=== PATIENT | female | born 1980 | race Caucasian/White ===

== ENCOUNTER 2016-04-24 11:39 | Inpatient (IN) | payer OTHER ==
[~2016-04-24] VITALS: Ht 167.6 cm; Wt 75.8 kg
[2016-04-24 12:57] LABS: BASO % 0 % (0-3); EOS % 0 % (0-3); HEMATOCRIT 43.3 % (36.0-47.0); HEMOGLOBIN 14.9 g/dL (12.0-15.5); LYMPH # 1.4 x10^3/uL (1.0-4.8); LYMPH % 9 % (24-48); MEAN CORPUSCULAR HEMOGLOBIN 31 pg (25-35); MEAN CORPUSCULAR HGB CONC 34 g/dL (31-37); MEAN CORPUSCULAR VOLUME 92 fL (79-100); MONO % 4 % (0-9); NEUT % 86 % (31-73); PLATELET COUNT 295 x10^3/uL (140-400); RED BLOOD COUNT 4.74 x10^6/uL (3.50-5.40); RED CELL DISTRIBUTION WIDTH 12.9 % (11.5-14.5); WHITE BLOOD COUNT 14.6 x10^3/uL (4.0-11.0)
[2016-04-24 13:05] LABS: NEG OBC UR NEG; POS OBC UR POS
[2016-04-24 13:06] LABS: BILIRUBIN,URINE NEGATIVE (NEG); GLUCOSE,URINE NEGATIVE (NEG); NITRITE,URINE NEGATIVE (NEG); PH,URINE 6.5; PROTEIN,URINE NEGATIVE (NEG-TRACE); UROBILINOGEN,URINE 0.2 mg/dL (0.2 mg/dL)
[2016-04-24 13:07] LABS: CALCIUM 9.5 mg/dL (8.5-10.1); CREATININE 0.8 mg/dL (0.6-1.0); GFR 81.6; POTASSIUM 4.1 mmol/L (3.5-5.1)
[2016-04-24 13:12] LABS: DIRECT BILIRUBIN 0.1 mg/dL (0.0-0.2); TOTAL BILIRUBIN 0.5 mg/dL (0.2-1.0); TOTAL PROTEIN 7.5 g/dL (6.4-8.2)
[2016-04-24 13:22] LABS: BACTERIA,URINE MANY /HPF (0-FEW); RBC,URINE 0 /HPF (0-2)
--- NOTE | 2016-04-24 13:47 | RAD ---
Indication: Right upper quadrant pain and epigastric pain. The liver demonstrates increased echogenicity consistent with fatty infiltration. No discrete mass is detected. Gallbladder is without stones or sludge. No wall thickening or pericholecystic fluid is identified. The pancreas was poorly visualized. The right kidney is unremarkable. Aorta and IVC are poorly visualized. There is no ascites. Impression: 1. Fatty infiltration of the liver. 2. No evidence of cholelithiasis or acute cholecystitis.
[2016-04-24] MEDS ORDERED: [UNRECOGNIZED DRUG - OTHER] (14:03)
[2016-04-24] MEDS ORDERED: KETOROLAC TROMETHAMINE 30 MG/ML SYRINGE. IV ONE (14:15)
[2016-04-24] MEDS ORDERED: FAMOTIDINE 20 MG/2 ML VIAL IVP ONE (14:15)
[2016-04-24] MEDS ORDERED: ONDANSETRON PF 4 MG/2 ML VIAL. IV ONE (14:15)
[2016-04-24 14:19] LABS: PLT ESTIMATE ADEQUATE (ADEQUATE)
--- NOTE | 2016-04-24 14:42 | PHYS DOC ---
Past Medical History Past Medical History: GERD Past Surgical History: Tonsillectomy, Other Additional Past Surgical Histo: Bilat.ear,"part" of tonsils Alcohol Use: Occasionally Drug Use: None Adult General Chief Complaint Chief Complaint: ABDOMINAL PAIN HPI HPI Patient is a 35 year old female who presents with 1 week of epigastric abdominal pain that is constant and has slightly worse component after eating. She has intermittent nausea that is not always related to eating. She has intermittent nonbloody nonbilious emesis. She denies fever or chills, dysuria, hematuria, back pain, diarrhea, constipation. She has taken tums without relief of her symptoms. She was seen at an outside ED yesterday and had labs and ultrasound of RUQ and told to take narcotic pain meds until she can get a HIDA scan. She saw her primary care doctor today in follow up and was referred here for continued severe symptoms of po intolerance and pain. Review of Systems Review of Systems Constitutional: Denies fever or chills [] Eyes: Denies change in visual acuity, redness, or eye pain [] HENT: Denies nasal congestion or sore throat [] Respiratory: Denies cough or shortness of breath [] Cardiovascular: No additional information not addressed in HPI [] GI: Denies vomiting, bloody stools or diarrhea [] : Denies dysuria or hematuria [] Musculoskeletal: Denies back pain or joint pain [] Integument: Denies rash or skin lesions [] Neurologic: Denies headache, focal weakness or sensory changes [] Endocrine: Denies polyuria or polydipsia [] Current Medications Current Medications Allergies Allergies Allergies Coded Allergies Type Severity Reaction Last Updated Verified Penicillins Allergy Unknown Hives 04/24/16 Yes acetaminophen Allergy Unknown Hives 04/24/16 Yes hydrocodone Allergy Unknown Hives 04/24/16 Yes vancomycin Allergy Unknown "Artem Syndrome." 04/24/16 Yes hydromorphone Adverse Reaction Unknown Whole body shaking-"Said it was an adverse reaction." 04/24/16 Yes Physical Exam Physical Exam Constitutional: Well developed, well nourished, no acute distress, non-toxic appearance. [] HENT: Normocephalic, atraumatic, bilateral external ears normal, oropharynx moist, nose normal. [] Eyes: PERRLA, EOMI. [] Neck: Normal range of motion, supple. [] Cardiovascular:Heart rate regular rhythm [] Lungs & Thorax: Bilateral breath sounds clear to auscultation [] Abdomen: Bowel sounds normal, soft, moderated epigastric and RUQ tenderness, no guarding or rebound. [] Skin: Warm, dry, no erythema, no rash. [] Back: No tenderness, no CVA tenderness. [] Extremities: No tenderness, ROM intact, no edema. [] Neurologic: Alert and oriented X 3, normal motor function, normal sensory function, no focal deficits noted. [] Psychologic: Affect normal, judgement normal, mood normal. [] Current Patient Data Vital Signs Vital Signs Date Time Temp Pulse Resp B/P Pulse Ox O2 Delivery O2 Flow Rate FiO2 04/24/16 12:20 98.6 84 20 118/77 98 Room Air 98.6 Lab Values Laboratory Tests Test 04/24/16 12:18 04/24/16 12:25 Urine Collection Type Unknown Urine Color Yellow Urine Clarity Clear Urine pH 6.5 Urine Specific [place] 1.010 Urine Protein Negativemg/dL (NEG-TRACE) Urine Glucose (UA) Negativemg/dL (NEG) Urine Ketones (Stick) Negativemg/dL (NEG) Urine Blood Negative (NEG) Urine Nitrite Negative (NEG) Urine Bilirubin Negative (NEG) Urine Urobilinogen Dipstick 0.2mg/dL (0.2 mg/dL) Urine Leukocyte Esterase Trace (NEG) Urine RBC 0/HPF (0-2) Urine WBC 5-10/HPF (0-4) Urine Bacteria Many/HPF (0-FEW) Urine Test Negative (NEG) White Blood Count 14.6x10^3/uL (4.0-11.0) H Red Blood Count 4.74x10^6/uL (3.50-5.40) Hemoglobin 14.9g/dL (12.0-15.5) Hematocrit 43.3% (36.0-47.0) Mean Corpuscular Volume 92fL (79-100) Mean Corpuscular Hemoglobin 31pg (25-35) Mean Corpuscular Hemoglobin Concent 34g/dL (31-37) Red Cell Distribution Width 12.9% (11.5-14.5) Platelet Count 295x10^3/uL (140-400) Neutrophils (%) (Auto) 86% (31-73) H Lymphocytes (%) (Auto) 9% (24-48) L Monocytes (%) (Auto) 4% (0-9) Eosinophils (%) (Auto) 0% (0-3) Basophils (%) (Auto) 0% (0-3) Neutrophils # (Auto) 12.6x10^3uL (1.8-7.7) H Lymphocytes # (Auto) 1.4x10^3/uL (1.0-4.8) Monocytes # (Auto) 0.6x10^3/uL (0.0-1.1) Eosinophils # (Auto) 0.0x10^3/uL (0.0-0.7) Basophils # (Auto) 0.0x10^3/uL (0.0-0.2) Segmented Neutrophils % 80% (35-66) H Band Neutrophils % 4% (0-9) Lymphocytes % 10% (24-48) L Monocytes % 6% (0-10) Platelet Estimate Adequate (ADEQUATE) Sodium Level 143mmol/L (136-145) Potassium Level 4.1mmol/L (3.5-5.1) Chloride Level 106mmol/L (98-107) Carbon Dioxide Level 25mmol/L (21-32) Anion Gap 12 (6-14) Blood Urea Nitrogen 7mg/dL (7-20) Creatinine 0.8mg/dL (0.6-1.0) Estimated GFR (Cockcroft-Gault) 81.6 Glucose Level 110mg/dL (70-99) H Calcium Level 9.5mg/dL (8.5-10.1) Total Bilirubin 0.5mg/dL (0.2-1.0) Direct Bilirubin 0.1mg/dL (0.0-0.2) Aspartate Amino Transferase (AST) 15U/L (15-37) Alanine Aminotransferase (ALT) 20U/L (14-59) Alkaline Phosphatase 47U/L (46-116) Total Protein 7.5g/dL (6.4-8.2) Albumin 4.0g/dL (3.4-5.0) Lipase 79U/L (73-393) Laboratory Tests 04/24/16 12:25 Laboratory Tests 04/24/16 12:25 Radiology/Procedures Radiology/Procedures Ultrasound right upper quadrant Impression: 1. Fatty infiltration of the liver. 2. No evidence of cholelithiasis or acute cholecystitis. DICTATED and SIGNED BY: MAGGIE RAY MD DATE: 04/24/16 5419 Course & Med Decision Making Course & Med Decision Making Pertinent Labs and Imaging studies reviewed. (See chart for details) Workup is unremarkable, but she still has severe abdominal pain and her abdominal exam has not improved. Have strong suspicion for acid disease over biliary disease. Will admit for GI consultation and further workup of abdominal pain and symptom control. Have purposely avoided narcotic pain medications as a HIDA scan may be indicated. She agrees with the current management. Discussed case with Dr. Dodd, who will admit. GI consultation placed. Dragon Disclaimer Dragon Disclaimer This electronic medical record was generated, in whole or in part, using a voice recognition dictation system. Departure Departure Impression: Primary Impression: Epigastric abdominal pain Additional Impression: Nausea and vomiting Disposition: ADMITTED INPATIENT Condition: STABLE Referrals: UNKNOWN PCP NAME (PCP) Problem Qualifiers Additional Impression: Nausea and vomiting Vomiting type: unspecified Vomiting Intractability: intractable Qualified Code: R11.2 - Nausea with vomiting, unspecified Inocencia CALLE MD Apr 24, 2016 14:42
[2016-04-24] MEDS ORDERED: ONDANSETRON PF 4 MG/2 ML VIAL. IV PRN ×2 (14:45→18:45)
[2016-04-24] MEDS: PANTOPRAZOLE IV PUSH 40 MG VIAL. IVP SCH ×2 (15:25→23:00)
[2016-04-24] MEDS: IV NORMAL SALINE 1000ML BAG 1,000 ML IV SCH ×3 (15:25→23:00)
--- NOTE | 2016-04-24 15:27 | PDOC1 ---
History and Physical Current Problem List Problem List Problems Medical Problems: (1) Epigastric abdominal pain Status: Acute (2) Nausea and vomiting Status: Acute Current Medications Current Medications Current Medications Medications (Trade) Dose Ordered Sig/[facility] Start Time Stop Time Status Last Admin Dose Admin Famotidine (Pepcid) 20 mg 1X ONCE 04/24/16 14:15 04/24/16 14:16 DC 04/24/16 14:14 20 MG Ketorolac Tromethamine (Toradol) 15 mg 1X ONCE 04/24/16 14:15 04/24/16 14:16 DC 04/24/16 14:12 15 MG Ondansetron HCl (Zofran) 4 mg 1X ONCE 04/24/16 14:15 04/24/16 14:16 DC 04/24/16 14:09 4 MG Ondansetron HCl 4 mg 4 mg PRN Q8HRS PRN 04/24/16 14:45 04/25/16 14:44 Pantoprazole Sodium (Protonix Vial) 40 mg BID 04/24/16 15:00 04/24/16 15:25 40 MG Sodium Chloride (Iv Sodium Chloride 0.9% 1000ml Bag) 1,000 ml @ 125 mls/hr Q8H 04/24/16 15:00 04/25/16 14:59 04/24/16 15:25 125 MLS/HR Allergies Allergies Allergies Coded Allergies Type Severity Reaction Last Updated Verified Penicillins Allergy Unknown Hives 04/24/16 Yes acetaminophen Allergy Unknown Hives 04/24/16 Yes hydrocodone Allergy Unknown Hives 04/24/16 Yes vancomycin Allergy Unknown "Artem Syndrome." 04/24/16 Yes hydromorphone Adverse Reaction Unknown Whole body shaking-"Said it was an adverse reaction." 04/24/16 Yes ROS Review of System CONSTITUTIONAL: No fever or chills EYES: No recent changes SKIN: No rash or itching CARDIOVASCULAR: No chest pain, syncope, palpitations, or edema RESPIRATORY: No SOB or cough GASTROINTESTINAL: nausea, vomiting or abdominal pain NEUROLOGICAL: No headaches or weakness ENDOCRINE: No cold or heat intolerance GENITOURINARY: No urgency or frequency of urination MUSCULOSKELETAL: No back pain or joint pain LYMPHATICS: No enlarged lymph nodes PSYCHIATRIC: No anxiety or depression Physical Exam Physical Exam GEN.: No apparent distress. Alert and oriented. HEENT: Head is normocephalic, atraumatic NECK: Supple. no jvd LUNGS: Clear to auscultation. normal airflow HEART: RRR, S1, S2 present. Peripheral pulses intact ABDOMEN: Soft, nontender. Positive bowel sounds. EXTREMITIES: Without any cyanosis. NEUROLOGIC: Normal speech, normal tone PSYCHIATRIC: Normal affect, normal mood. SKIN: No ulcerations Vitals Vitals Vital Signs Date Time Temp Pulse Resp B/P Pulse Ox O2 Delivery O2 Flow Rate FiO2 04/24/16 12:20 98.6 84 20 118/77 98 Room Air 98.6 Labs Labs Laboratory Tests Test 04/24/16 12:18 04/24/16 12:25 Urine Collection Type Unknown Urine Color Yellow Urine Clarity Clear Urine pH 6.5 Urine Specific [place] 1.010 Urine Protein Negativemg/dL (NEG-TRACE) Urine Glucose (UA) Negativemg/dL (NEG) Urine Ketones (Stick) Negativemg/dL (NEG) Urine Blood Negative (NEG) Urine Nitrite Negative (NEG) Urine Bilirubin Negative (NEG) Urine Urobilinogen Dipstick 0.2mg/dL (0.2 mg/dL) Urine Leukocyte Esterase Trace (NEG) Urine RBC 0/HPF (0-2) Urine WBC 5-10/HPF (0-4) Urine Bacteria Many/HPF (0-FEW) Urine Test Negative (NEG) White Blood Count 14.6x10^3/uL (4.0-11.0) Red Blood Count 4.74x10^6/uL (3.50-5.40) Hemoglobin 14.9g/dL (12.0-15.5) Hematocrit 43.3% (36.0-47.0) Mean Corpuscular Volume 92fL (79-100) Mean Corpuscular Hemoglobin 31pg (25-35) Mean Corpuscular Hemoglobin Concent 34g/dL (31-37) Red Cell Distribution Width 12.9% (11.5-14.5) Platelet Count 295x10^3/uL (140-400) Neutrophils (%) (Auto) 86% (31-73) Lymphocytes (%) (Auto) 9% (24-48) Monocytes (%) (Auto) 4% (0-9) Eosinophils (%) (Auto) 0% (0-3) Basophils (%) (Auto) 0% (0-3) Neutrophils # (Auto) 12.6x10^3uL (1.8-7.7) Lymphocytes # (Auto) 1.4x10^3/uL (1.0-4.8) Monocytes # (Auto) 0.6x10^3/uL (0.0-1.1) Eosinophils # (Auto) 0.0x10^3/uL (0.0-0.7) Basophils # (Auto) 0.0x10^3/uL (0.0-0.2) Segmented Neutrophils % 80% (35-66) Band Neutrophils % 4% (0-9) Lymphocytes % 10% (24-48) Monocytes % 6% (0-10) Platelet Estimate Adequate (ADEQUATE) Sodium Level 143mmol/L (136-145) Potassium Level 4.1mmol/L (3.5-5.1) Chloride Level 106mmol/L (98-107) Carbon Dioxide Level 25mmol/L (21-32) Anion Gap 12 (6-14) Blood Urea Nitrogen 7mg/dL (7-20) Creatinine 0.8mg/dL (0.6-1.0) Estimated GFR (Cockcroft-Gault) 81.6 Glucose Level 110mg/dL (70-99) Calcium Level 9.5mg/dL (8.5-10.1) Total Bilirubin 0.5mg/dL (0.2-1.0) Direct Bilirubin 0.1mg/dL (0.0-0.2) Aspartate Amino Transf (AST/SGOT) 15U/L (15-37) Alanine Aminotransferase (ALT/SGPT) 20U/L (14-59) Alkaline Phosphatase 47U/L (46-116) Total Protein 7.5g/dL (6.4-8.2) Albumin 4.0g/dL (3.4-5.0) Lipase 79U/L (73-393) Laboratory Tests Test 04/24/16 12:18 04/24/16 12:25 Urine Collection Type Unknown Urine Color Yellow Urine Clarity Clear Urine pH 6.5 Urine Specific [place] 1.010 Urine Protein Negativemg/dL (NEG-TRACE) Urine Glucose (UA) Negativemg/dL (NEG) Urine Ketones (Stick) Negativemg/dL (NEG) Urine Blood Negative (NEG) Urine Nitrite Negative (NEG) Urine Bilirubin Negative (NEG) Urine Urobilinogen Dipstick 0.2mg/dL (0.2 mg/dL) Urine Leukocyte Esterase Trace (NEG) Urine RBC 0/HPF (0-2) Urine WBC 5-10/HPF (0-4) Urine Bacteria Many/HPF (0-FEW) Urine Test Negative (NEG) White Blood Count 14.6x10^3/uL (4.0-11.0) Red Blood Count 4.74x10^6/uL (3.50-5.40) Hemoglobin 14.9g/dL (12.0-15.5) Hematocrit 43.3% (36.0-47.0) Mean Corpuscular Volume 92fL (79-100) Mean Corpuscular Hemoglobin 31pg (25-35) Mean Corpuscular Hemoglobin Concent 34g/dL (31-37) Red Cell Distribution Width 12.9% (11.5-14.5) Platelet Count 295x10^3/uL (140-400) Neutrophils (%) (Auto) 86% (31-73) Lymphocytes (%) (Auto) 9% (24-48) Monocytes (%) (Auto) 4% (0-9) Eosinophils (%) (Auto) 0% (0-3) Basophils (%) (Auto) 0% (0-3) Neutrophils # (Auto) 12.6x10^3uL (1.8-7.7) Lymphocytes # (Auto) 1.4x10^3/uL (1.0-4.8) Monocytes # (Auto) 0.6x10^3/uL (0.0-1.1) Eosinophils # (Auto) 0.0x10^3/uL (0.0-0.7) Basophils # (Auto) 0.0x10^3/uL (0.0-0.2) Segmented Neutrophils % 80% (35-66) Band Neutrophils % 4% (0-9) Lymphocytes % 10% (24-48) Monocytes % 6% (0-10) Platelet Estimate Adequate (ADEQUATE) Sodium Level 143mmol/L (136-145) Potassium Level 4.1mmol/L (3.5-5.1) Chloride Level 106mmol/L (98-107) Carbon Dioxide Level 25mmol/L (21-32) Anion Gap 12 (6-14) Blood Urea Nitrogen 7mg/dL (7-20) Creatinine 0.8mg/dL (0.6-1.0) Estimated GFR (Cockcroft-Gault) 81.6 Glucose Level 110mg/dL (70-99) Calcium Level 9.5mg/dL (8.5-10.1) Total Bilirubin 0.5mg/dL (0.2-1.0) Direct Bilirubin 0.1mg/dL (0.0-0.2) Aspartate Amino Transf (AST/SGOT) 15U/L (15-37) Alanine Aminotransferase (ALT/SGPT) 20U/L (14-59) Alkaline Phosphatase 47U/L (46-116) Total Protein 7.5g/dL (6.4-8.2) Albumin 4.0g/dL (3.4-5.0) Lipase 79U/L (73-393) VTE Prophylaxis Ordered VTE Prophylaxis Devices: Yes VTE Pharmacological Prophylaxi: Yes XAVI SOLORIO MD Apr 24, 2016 15:27
--- NOTE | 2016-04-24 15:29 | ACF ---
Admission Forms Criteria ABDOMINAL PAIN Clinical Indications for Admission to Inpatient Care (Place 'X' for any and all applicable criteria): Admission is indicated for ANY ONE of the following(1)(2)(3)(4)(5): [X]I. Inpatient admission required rather than observation care (Also use Abdominal Pain: Observation Care, as appropriate) because of ANY ONE of the following: [X]a) Severe pain requiring acute inpatient management [ ]b) Identification of etiology/finding that requires inpatient care (eg, aortic dissection, free air) [ ]c) Absent bowel sounds with complete ileus(6) [ ]d) Suspected toxic megacolon [ ]e) Severe electrolyte abnormalities requiring inpatient care [ ]f) High fever or infection requiring inpatient admission as indicated by ANY ONE of following(7)(8): [ ] i) Appropriate outpatient or observational care antimicrobial treatment unavailable, not effective, or not feasible [ ] ii) Documented bacteremia [ ] iii) Temperature > 104.9 degrees F (oral) [ ] iv) T >103.1 F (oral) or < 96.8 F(rectal) that does not respond to all emergency treatment measures [ ]g) Signs of intestinal obstruction [B] [ ]h) Hemodynamic instability [ ]i) IV fluid to replace significant ongoing losses (greater than 3 L/m2 per day) (12)(13) [ ]j) Percutaneous or open drainage (eg, abscess, biliary tract ) procedures [ ]k) Parenteral nutrition regimen that must be implemented on inpatient basis [ ]l) Other condition,treatment or monitoring requiring inpatient admission. [ ]II. Peritoneal signs present [ ]III. Surgery needed that cannot be performed on an ambulatory basis. [ ]IV. Evaluation requires patient to not eat or drink for extended period ( eg, more than 24 hours). [ ]V. Contraindications and/or Inappropriate clinical situations for Observational Care in patients with abdominal pain, when ANY ONE of the following is required: [ ]a) Thorough evaluation is required to prevent catastrophic events due to delays in diagnosing (e.g.Mesenteric ischemia) 1,3 [ ]b) Patient with severe pathology or with chronic symptoms unlikely to improve in the ED stay (3) [ ]. General contraindications and/or Inappropriate clinical situations for Observational Care in patients with abdominal pain, when ANY ONE of the following is required: [ ]a) Prediction of prolongation of LOS based on ANY ONE of the following may be considered as a contraindication for observational care 2, 3, 4, 5, 6, 7, 8, 9, 10, 11 [ ]i) Age > 65 yrs. [ ]ii) Patient arriving by ambulance [ ]iii) Patient with high acuity [ ]iv) Patient requiring vital sign monitoring [ ]v) Patient on IV medication [ ]b) Systolic blood pressures 180mmHg 3,12 [ ]c) Patient with altered mental status including delirium and other alteration of consciousness, (3) [ ]d) Patient whose discharge disposition will be to a retirement home or rehabilitation home should not be managed in Emergency Department Observation Unit. CMS rule requires 3 days hospital stay before such placement.3,13 [ ]e) Patient with failure to thrive due to broad array of etiologies 3,16,17 [ ]f) Inability to ambulate 3,14 Extended stay beyond goal length of stay may be needed for(2)(3): [ ]a) Persistent abdominal pain with suspected intra-abdominal process [ ]b) Diagnosed condition requiring continued stay (e.g., pancreatitis, complicated diverticulitis) [ ]c) Surgery (e.g., colectomy) The original [email or web address] content created by [employer] has been revised. The portions of the content which have been revised are identified through the use of italic text or in bold, and [facility] has neither reviewed nor approved the modified material.All other unmodified content is copyright [employer]. Please see references footnoted in the original [email or web address] edition 2016 Admission Criteria Met?: Yes VITO LI Apr 24, 2016 15:29
--- NOTE | 2016-04-24 15:47 | PDOC2 ---
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 She has had epigastric pain w/ radiation to BUQ (mostly right it seem) and right shoulder blade x 1 week. She denies precipitating events. Pain is constant but is worse after eating; she has avoided eating as a result. It has been associated w/ nausea; she hasn't allowed herself to vomit. She tried Tums, Prilosec (for a few days), ibuprofen (once), and massaging right shoulder w/o pain relief. She saw her PCP and was sent to [facility] where she reports an abdominal ultrasound was normal, she was given a prescription for antibiotics for a UTI, and discharged w/ recommendation to have a HIDA scan as an outpatient. Pain and nausea were much worse today, so she saw her PCP again today who advised she be seen at this facility. Pain can be 10/10 at it's worst but is currently about 4/10 after Toradol. Labs unrevealing except for WBC 14.6. RUQ US showed fatty liver but was otherwise unrevealing. HIDA has been ordered. She denies h/o reflux/heartburn/dyspepsia, dysphagia, weight loss, bloating, diarrhea, constipation, hematochezia, and melena. No previous EGD or colonoscopy. Recent travel to [place]; only drank bottled water and ate cooked foods. PMH: PMH: ear surgeries, tonsillectomy FH: Family History: No pertinent hx (denies GI cancers) Social History: Smoke: No ALCOHOL: social Drugs: None ROS: GEN: Denies fevers, chills, sweats HEENT: Denies blurred vision, sore throat CV: Denies chest pain RESP: Denies shortness of air, cough GI: Per HPI : Denies hematuria, dysuria ENDO: Denies weight changes NEURO: Denies confusion, dizziness MSK: Denies weakness, joint pain/swelling SKIN: Denies jaundice, pruritus VItals: Vitals: Vital Signs Date Time Temp Pulse Resp B/P Pulse Ox O2 Delivery O2 Flow Rate FiO2 04/24/16 12:20 98.6 84 20 118/77 98 Room Air 98.6 Labs: Labs: Laboratory Tests Test 04/24/16 12:18 1/24/17 12:25 Urine Collection Type Unknown Urine Color Yellow Urine Clarity Clear Urine pH 6.5 Urine Specific [place] 1.010 Urine Protein Negativemg/dL (NEG-TRACE) Urine Glucose (UA) Negativemg/dL (NEG) Urine Ketones (Stick) Negativemg/dL (NEG) Urine Blood Negative (NEG) Urine Nitrite Negative (NEG) Urine Bilirubin Negative (NEG) Urine Urobilinogen Dipstick 0.2mg/dL (0.2 mg/dL) Urine Leukocyte Esterase Trace (NEG) Urine RBC 0/HPF (0-2) Urine WBC 5-10/HPF (0-4) Urine Bacteria Many/HPF (0-FEW) Urine Test Negative (NEG) White Blood Count 14.6x10^3/uL (4.0-11.0) Red Blood Count 4.74x10^6/uL (3.50-5.40) Hemoglobin 14.9g/dL (12.0-15.5) Hematocrit 43.3% (36.0-47.0) Mean Corpuscular Volume 92fL (79-100) Mean Corpuscular Hemoglobin 31pg (25-35) Mean Corpuscular Hemoglobin Concent 34g/dL (31-37) Red Cell Distribution Width 12.9% (11.5-14.5) Platelet Count 295x10^3/uL (140-400) Neutrophils (%) (Auto) 86% (31-73) Lymphocytes (%) (Auto) 9% (24-48) Monocytes (%) (Auto) 4% (0-9) Eosinophils (%) (Auto) 0% (0-3) Basophils (%) (Auto) 0% (0-3) Neutrophils # (Auto) 12.6x10^3uL (1.8-7.7) Lymphocytes # (Auto) 1.4x10^3/uL (1.0-4.8) Monocytes # (Auto) 0.6x10^3/uL (0.0-1.1) Eosinophils # (Auto) 0.0x10^3/uL (0.0-0.7) Basophils # (Auto) 0.0x10^3/uL (0.0-0.2) Segmented Neutrophils % 80% (35-66) Band Neutrophils % 4% (0-9) Lymphocytes % 10% (24-48) Monocytes % 6% (0-10) Platelet Estimate Adequate (ADEQUATE) Sodium Level 143mmol/L (136-145) Potassium Level 4.1mmol/L (3.5-5.1) Chloride Level 106mmol/L (98-107) Carbon Dioxide Level 25mmol/L (21-32) Anion Gap 12 (6-14) Blood Urea Nitrogen 7mg/dL (7-20) Creatinine 0.8mg/dL (0.6-1.0) Estimated GFR (Cockcroft-Gault) 81.6 Glucose Level 110mg/dL (70-99) Calcium Level 9.5mg/dL (8.5-10.1) Total Bilirubin 0.5mg/dL (0.2-1.0) Direct Bilirubin 0.1mg/dL (0.0-0.2) Aspartate Amino Transf (AST/SGOT) 15U/L (15-37) Alanine Aminotransferase (ALT/SGPT) 20U/L (14-59) Alkaline Phosphatase 47U/L (46-116) Total Protein 7.5g/dL (6.4-8.2) Albumin 4.0g/dL (3.4-5.0) Lipase 79U/L (73-393) Allergies: Coded Allergies: Penicillins (Verified Allergy, Unknown, Hives, 04/24/16) acetaminophen (Verified Allergy, Unknown, Hives, 04/24/16) hydrocodone (Verified Allergy, Unknown, Hives, 04/24/16) vancomycin (Verified Allergy, Unknown, "Artem Syndrome." , 04/24/16) hydromorphone (Verified Adverse Reaction, Unknown, Whole body shaking- "Said it was an adverse reaction." , 04/24/16) Medications: Current Medications Medications (Trade) Dose Ordered Sig/Fernando Route PRN Reason Start Time Stop Time Status Last Admin Dose Admin Ondansetron HCl (Zofran) 4 mg 1X ONCE IV 04/24/16 14:15 04/24/16 14:16 DC 04/24/16 14:09 Famotidine (Pepcid) 20 mg 1X ONCE IVP 04/24/16 14:15 04/24/16 14:16 DC 04/24/16 14:14 Ketorolac Tromethamine 15 mg 15 mg 1X ONCE IV 04/24/16 14:15 04/24/16 14:16 DC 04/24/16 14:12 Sodium Chloride (Iv Sodium Chloride 0.9% 1000ml Bag) 1,000 ml @ 125 mls/hr Q8H IV 04/24/16 15:00 04/25/16 14:59 04/24/16 15:25 Pantoprazole Sodium (Protonix Vial) 40 mg BID IVP 04/24/16 15:00 04/24/16 23:59 04/24/16 15:25 Imaging: Imaging: RUQ US 04/24/16 Impression: 1. Fatty infiltration of the liver. 2. No evidence of cholelithiasis or acute cholecystitis. PE: GEN: NAD HEENT: Atraumatic, PERRL LUNGS: CTAB anteriorly HEART: RRR ABD: NABS, S/ND, epigastric tenderness - less so in RUQ, some under left ribs EXTREMITY: No edema SKIN: No rashes, no jaundice NEURO/PSYCH: A & O 3 OTHER: present A/P: A/P: Upper abdominal pain w/ nausea -onset 1 week ago w/o precipitating events -constant but worse post-prandially -abd US and labs unrevealing -- Await HIDA. If unrevealing, consider EGD. Agree w/ PPI. KALINA KENNY Apr 24, 2016 15:47
[2016-04-24 16:53] VITALS: BP 118/76
[2016-04-24] MEDS: PROCHLORPERAZINE 10 MG/2 ML VIAL. IV PRN (18:43)
[2016-04-24] MEDS: FENTANYL PF 100 MCG/2 ML VIAL. IV PRN (18:43)
[2016-04-24] MEDS ORDERED: hydrALAZINE 20 MG/ML VIAL. IVP PRN (18:45)
[2016-04-24] MEDS ORDERED: ALBUTEROL SULFATE 2.5 MG/3 ML NEBU. NEB PRN (18:45)
[2016-04-24 19:00] VITALS: BP 107/66
[2016-04-24 19:33] VITALS: BP 118/76
--- NOTE | 2016-04-24 19:54 | HP ---
ADMIT DATE: 04/24/2016 CHIEF COMPLAINT: Abdominal pain. HISTORY OF PRESENT ILLNESS: A 35-year-old female patient with no significant prior medical problems, presented to the ER with complaints of epigastric abdominal pain for nearly 1 week. The patient was seen by ER physician at ____ hospital and she had ultrasound of the abdomen, which is negative; however, the patient continued to have abdominal pain. This morning, the patient came to the ER. She describes this pain as epigastric in nature and constant and spasmodic in nature. Denies any radiation; however, she complains of right shoulder pain in the past. She denies any past medical history such as peptic ulcer disease, gastritis, or GERD. PAST MEDICAL HISTORY: No hypertension, no diabetes. SOCIAL HISTORY: No smoking, no alcohol, no drug abuse. FAMILY HISTORY: Denies any cancers. REVIEW OF SYSTEMS, ALLERGIES AND PHYSICAL EXAMINATION: Please see my electronic H and P. LABORATORY DATA: 1. WBC 14.6, MCV is 92, MCHC is 34, neutrophils 86%, bands 4. 2. Chemistry: Sodium is 143, potassium is 4.1, carbon dioxide 25, anion gap is 12, creatinine is 0.8. 3. Urine, specific gravity 1.010, ketones negative, blood negative, nitrites negative, leukocyte esterase is trace. test negative. ASSESSMENT: Acute abdominal pain, possible due to peptic ulcer disease versus gastritis. PLAN: 1. Keep the patient n.p.o. and continue IV hydration at 100 mL per hour and pain control with fentanyl and a HIDA scan has been ordered. Anticipated HIDA scan in a.m. 2. GI has been consulted. We will continue the patient on IV Protonix. 3. For nausea and vomiting, IV Zofran with Compazine. 4. If the patient's symptoms did not improve after HIDA scan, probably she is a candidate for EGD. 5. I will also order an abdominal x-ray to rule out any perforation. XAVI SOLORIO MD DR: ELEAZAR/abram JOB#: [id number] / [id number] MTDD
[2016-04-24] MEDS: ENOXAPARIN 40 MG/0.4 ML DISP.SYRIN. SQ SCH (21:00)
[2016-04-24 23:17] VITALS: BP 118/63
[2016-04-25 03:00] VITALS: BP 99/65
[2016-04-25] MEDS: IV NORMAL SALINE 1000ML BAG 1,000 ML IV SCH ×3 (04:47→21:08)
[2016-04-25 05:38] LABS: BASO % 0 % (0-3); EOS % 0 % (0-3); HEMATOCRIT 35.8 % (36.0-47.0); HEMOGLOBIN 12.3 g/dL (12.0-15.5); LYMPH # 5.3 x10^3/uL (1.0-4.8); LYMPH % 41 % (24-48); MEAN CORPUSCULAR HEMOGLOBIN 31 pg (25-35); MEAN CORPUSCULAR HGB CONC 34 g/dL (31-37); MEAN CORPUSCULAR VOLUME 90 fL (79-100); MONO % 5 % (0-9); NEUT % 53 % (31-73); PLATELET COUNT 237 x10^3/uL (140-400); RED BLOOD COUNT 3.98 x10^6/uL (3.50-5.40)
[2016-04-25 05:49] LABS: CALCIUM 8.3 mg/dL (8.5-10.1); GFR 63.1; POTASSIUM 3.6 mmol/L (3.5-5.1)
[2016-04-25 07:00] VITALS: BP 132/82
[2016-04-25] MEDS: PANTOPRAZOLE 40 MG TABLET. PO SCH (07:30)
--- NOTE | 2016-04-25 07:31 | RAD ---
Abdomen, 2 views, 04/24/2016: History: Abdominal pain Gas is present in large and small bowel in a nonspecific pattern. No free air seen in the abdomen. There is no evidence of organomegaly. No significant abnormal abdominal calcifications are seen. IMPRESSION: No acute abdominal abnormality is detected.
--- NOTE | 2016-04-25 10:12 | PDOC ---
Subjective: Subjective: Out for HIDA. D/w - has been NPO since admission w/ less pain and nausea. Rated 2/10 this a.m. Was a little worse when she got up and moved around. Objective: Vital Signs: Vital Signs Date Time Temp Pulse Resp B/P Pulse Ox O2 Delivery O2 Flow Rate FiO2 04/25/16 07:00 98.2 73 18 132/82 97 Room Air 98.2 Labs: Laboratory Tests Test 04/24/16 12:18 04/24/16 12:25 04/25/16 05:03 Urine Collection Type Unknown Urine Color Yellow Urine Clarity Clear Urine pH 6.5 Urine Specific [place] 1.010 Urine Protein Negativemg/dL Urine Glucose (UA) Negativemg/dL Urine Ketones (Stick) Negativemg/dL Urine Blood Negative Urine Nitrite Negative Urine Bilirubin Negative Urine Urobilinogen Dipstick 0.2mg/dL Urine Leukocyte Esterase Trace Urine RBC 0/HPF Urine WBC 5-10/HPF Urine Bacteria Many/HPF Urine Test Negative White Blood Count 14.6x10^3/uL 13.0x10^3/uL Red Blood Count 4.74x10^6/uL 3.98x10^6/uL Hemoglobin 14.9g/dL 12.3g/dL Hematocrit 43.3% 35.8% Mean Corpuscular Volume 92fL 90fL Mean Corpuscular Hemoglobin 31pg 31pg Mean Corpuscular Hemoglobin Concent 34g/dL 34g/dL Red Cell Distribution Width 12.9% 13.0% Platelet Count 295x10^3/uL 237x10^3/uL Neutrophils (%) (Auto) 86% 53% Lymphocytes (%) (Auto) 9% 41% Monocytes (%) (Auto) 4% 5% Eosinophils (%) (Auto) 0% 0% Basophils (%) (Auto) 0% 0% Neutrophils # (Auto) 12.6x10^3uL 7.0x10^3uL Lymphocytes # (Auto) 1.4x10^3/uL 5.3x10^3/uL Monocytes # (Auto) 0.6x10^3/uL 0.7x10^3/uL Eosinophils # (Auto) 0.0x10^3/uL 0.0x10^3/uL Basophils # (Auto) 0.0x10^3/uL 0.0x10^3/uL Segmented Neutrophils % 80% Band Neutrophils % 4% Lymphocytes % 10% Monocytes % 6% Platelet Estimate Adequate Sodium Level 143mmol/L 144mmol/L Potassium Level 4.1mmol/L 3.6mmol/L Chloride Level 106mmol/L 110mmol/L Carbon Dioxide Level 25mmol/L 24mmol/L Anion Gap 12 10 Blood Urea Nitrogen 7mg/dL 15mg/dL Creatinine 0.8mg/dL 1.0mg/dL Estimated GFR (Cockcroft-Gault) 81.6 63.1 Glucose Level 110mg/dL 88mg/dL Calcium Level 9.5mg/dL 8.3mg/dL Total Bilirubin 0.5mg/dL Direct Bilirubin 0.1mg/dL Aspartate Amino Transf (AST/SGOT) 15U/L Alanine Aminotransferase (ALT/SGPT) 20U/L Alkaline Phosphatase 47U/L Total Protein 7.5g/dL Albumin 4.0g/dL Lipase 79U/L PE: no exam A/P: Upper abdominal pain w/ nausea - improving -abd US and labs unrevealing -on PPI -- Will follow for HIDA results. KALINA KENNY Apr 25, 2016 10:12
--- NOTE | 2016-04-25 10:23 | PDOC ---
PROGRESS NOTES Chief Complaint Chief Complaint cc: abdominal pain A/P Acute abdominal pain, possible due to peptic ulcer disease versus gastritis. plan HIDA pending PPI NPO IV-NS IV ZOFRAN GI following pain control with IV fentanyl History of Present Illness History of Present Illness pain 09/08, no fever Vitals Vitals Vital Signs Date Time Temp Pulse Resp B/P Pulse Ox O2 Delivery O2 Flow Rate FiO2 04/25/16 07:00 98.2 73 18 132/82 97 Room Air 98.2 Physical Exam General: Alert, Oriented X3 Heart: Regular rate, Normal S1, Normal S2 Lungs: Clear, Wheezing Abdomen: Normal bowel sounds, Soft Labs LABS Laboratory Tests Test 04/24/16 12:18 04/24/16 12:25 04/25/16 05:03 Urine Collection Type Unknown Urine Color Yellow Urine Clarity Clear Urine pH 6.5 Urine Specific [place] 1.010 Urine Protein Negativemg/dL (NEG-TRACE) Urine Glucose (UA) Negativemg/dL (NEG) Urine Ketones (Stick) Negativemg/dL (NEG) Urine Blood Negative (NEG) Urine Nitrite Negative (NEG) Urine Bilirubin Negative (NEG) Urine Urobilinogen Dipstick 0.2mg/dL (0.2 mg/dL) Urine Leukocyte Esterase Trace (NEG) Urine RBC 0/HPF (0-2) Urine WBC 5-10/HPF (0-4) Urine Bacteria Many/HPF (0-FEW) Urine Test Negative (NEG) White Blood Count 14.6x10^3/uL (4.0-11.0) 13.0x10^3/uL (4.0-11.0) Red Blood Count 4.74x10^6/uL (3.50-5.40) 3.98x10^6/uL (3.50-5.40) Hemoglobin 14.9g/dL (12.0-15.5) 12.3g/dL (12.0-15.5) Hematocrit 43.3% (36.0-47.0) 35.8% (36.0-47.0) Mean Corpuscular Volume 92fL (79-100) 90fL (79-100) Mean Corpuscular Hemoglobin 31pg (25-35) 31pg (25-35) Mean Corpuscular Hemoglobin Concent 34g/dL (31-37) 34g/dL (31-37) Red Cell Distribution Width 12.9% (11.5-14.5) 13.0% (11.5-14.5) Platelet Count 295x10^3/uL (140-400) 237x10^3/uL (140-400) Neutrophils (%) (Auto) 86% (31-73) 53% (31-73) Lymphocytes (%) (Auto) 9% (24-48) 41% (24-48) Monocytes (%) (Auto) 4% (0-9) 5% (0-9) Eosinophils (%) (Auto) 0% (0-3) 0% (0-3) Basophils (%) (Auto) 0% (0-3) 0% (0-3) Neutrophils # (Auto) 12.6x10^3uL (1.8-7.7) 7.0x10^3uL (1.8-7.7) Lymphocytes # (Auto) 1.4x10^3/uL (1.0-4.8) 5.3x10^3/uL (1.0-4.8) Monocytes # (Auto) 0.6x10^3/uL (0.0-1.1) 0.7x10^3/uL (0.0-1.1) Eosinophils # (Auto) 0.0x10^3/uL (0.0-0.7) 0.0x10^3/uL (0.0-0.7) Basophils # (Auto) 0.0x10^3/uL (0.0-0.2) 0.0x10^3/uL (0.0-0.2) Segmented Neutrophils % 80% (35-66) Band Neutrophils % 4% (0-9) Lymphocytes % 10% (24-48) Monocytes % 6% (0-10) Platelet Estimate Adequate (ADEQUATE) Sodium Level 143mmol/L (136-145) 144mmol/L (136-145) Potassium Level 4.1mmol/L (3.5-5.1) 3.6mmol/L (3.5-5.1) Chloride Level 106mmol/L (98-107) 110mmol/L (98-107) Carbon Dioxide Level 25mmol/L (21-32) 24mmol/L (21-32) Anion Gap 12 (6-14) 10 (6-14) Blood Urea Nitrogen 7mg/dL (7-20) 15mg/dL (7-20) Creatinine 0.8mg/dL (0.6-1.0) 1.0mg/dL (0.6-1.0) Estimated GFR (Cockcroft-Gault) 81.6 63.1 Glucose Level 110mg/dL (70-99) 88mg/dL (70-99) Calcium Level 9.5mg/dL (8.5-10.1) 8.3mg/dL (8.5-10.1) Total Bilirubin 0.5mg/dL (0.2-1.0) Direct Bilirubin 0.1mg/dL (0.0-0.2) Aspartate Amino Transf (AST/SGOT) 15U/L (15-37) Alanine Aminotransferase (ALT/SGPT) 20U/L (14-59) Alkaline Phosphatase 47U/L (46-116) Total Protein 7.5g/dL (6.4-8.2) Albumin 4.0g/dL (3.4-5.0) Lipase 79U/L (73-393) Assessment and Plan Assessmemt and Plan Problems Medical Problems: (1) Epigastric abdominal pain Status: Acute (2) Nausea and vomiting Status: Acute Problems: Comment Review of Relevant I have reviewed the following items jann (where applicable) has been applied. Labs Laboratory Tests Test 04/24/16 12:18 04/24/16 12:25 04/25/16 05:03 Urine Collection Type Unknown Urine Color Yellow Urine Clarity Clear Urine pH 6.5 Urine Specific [place] 1.010 Urine Protein Negativemg/dL (NEG-TRACE) Urine Glucose (UA) Negativemg/dL (NEG) Urine Ketones (Stick) Negativemg/dL (NEG) Urine Blood Negative (NEG) Urine Nitrite Negative (NEG) Urine Bilirubin Negative (NEG) Urine Urobilinogen Dipstick 0.2mg/dL (0.2 mg/dL) Urine Leukocyte Esterase Trace (NEG) Urine RBC 0/HPF (0-2) Urine WBC 5-10/HPF (0-4) Urine Bacteria Many/HPF (0-FEW) Urine Test Negative (NEG) White Blood Count 14.6x10^3/uL (4.0-11.0) 13.0x10^3/uL (4.0-11.0) Red Blood Count 4.74x10^6/uL (3.50-5.40) 3.98x10^6/uL (3.50-5.40) Hemoglobin 14.9g/dL (12.0-15.5) 12.3g/dL (12.0-15.5) Hematocrit 43.3% (36.0-47.0) 35.8% (36.0-47.0) Mean Corpuscular Volume 92fL (79-100) 90fL (79-100) Mean Corpuscular Hemoglobin 31pg (25-35) 31pg (25-35) Mean Corpuscular Hemoglobin Concent 34g/dL (31-37) 34g/dL (31-37) Red Cell Distribution Width 12.9% (11.5-14.5) 13.0% (11.5-14.5) Platelet Count 295x10^3/uL (140-400) 237x10^3/uL (140-400) Neutrophils (%) (Auto) 86% (31-73) 53% (31-73) Lymphocytes (%) (Auto) 9% (24-48) 41% (24-48) Monocytes (%) (Auto) 4% (0-9) 5% (0-9) Eosinophils (%) (Auto) 0% (0-3) 0% (0-3) Basophils (%) (Auto) 0% (0-3) 0% (0-3) Neutrophils # (Auto) 12.6x10^3uL (1.8-7.7) 7.0x10^3uL (1.8-7.7) Lymphocytes # (Auto) 1.4x10^3/uL (1.0-4.8) 5.3x10^3/uL (1.0-4.8) Monocytes # (Auto) 0.6x10^3/uL (0.0-1.1) 0.7x10^3/uL (0.0-1.1) Eosinophils # (Auto) 0.0x10^3/uL (0.0-0.7) 0.0x10^3/uL (0.0-0.7) Basophils # (Auto) 0.0x10^3/uL (0.0-0.2) 0.0x10^3/uL (0.0-0.2) Segmented Neutrophils % 80% (35-66) Band Neutrophils % 4% (0-9) Lymphocytes % 10% (24-48) Monocytes % 6% (0-10) Platelet Estimate Adequate (ADEQUATE) Sodium Level 143mmol/L (136-145) 144mmol/L (136-145) Potassium Level 4.1mmol/L (3.5-5.1) 3.6mmol/L (3.5-5.1) Chloride Level 106mmol/L (98-107) 110mmol/L (98-107) Carbon Dioxide Level 25mmol/L (21-32) 24mmol/L (21-32) Anion Gap 12 (6-14) 10 (6-14) Blood Urea Nitrogen 7mg/dL (7-20) 15mg/dL (7-20) Creatinine 0.8mg/dL (0.6-1.0) 1.0mg/dL (0.6-1.0) Estimated GFR (Cockcroft-Gault) 81.6 63.1 Glucose Level 110mg/dL (70-99) 88mg/dL (70-99) Calcium Level 9.5mg/dL (8.5-10.1) 8.3mg/dL (8.5-10.1) Total Bilirubin 0.5mg/dL (0.2-1.0) Direct Bilirubin 0.1mg/dL (0.0-0.2) Aspartate Amino Transf (AST/SGOT) 15U/L (15-37) Alanine Aminotransferase (ALT/SGPT) 20U/L (14-59) Alkaline Phosphatase 47U/L (46-116) Total Protein 7.5g/dL (6.4-8.2) Albumin 4.0g/dL (3.4-5.0) Lipase 79U/L (73-393) Laboratory Tests Test 04/24/16 12:18 04/24/16 12:25 04/25/16 05:03 Urine Collection Type Unknown Urine Color Yellow Urine Clarity Clear Urine pH 6.5 Urine Specific [place] 1.010 Urine Protein Negativemg/dL (NEG-TRACE) Urine Glucose (UA) Negativemg/dL (NEG) Urine Ketones (Stick) Negativemg/dL (NEG) Urine Blood Negative (NEG) Urine Nitrite Negative (NEG) Urine Bilirubin Negative (NEG) Urine Urobilinogen Dipstick 0.2mg/dL (0.2 mg/dL) Urine Leukocyte Esterase Trace (NEG) Urine RBC 0/HPF (0-2) Urine WBC 5-10/HPF (0-4) Urine Bacteria Many/HPF (0-FEW) Urine Test Negative (NEG) White Blood Count 14.6x10^3/uL (4.0-11.0) 13.0x10^3/uL (4.0-11.0) Red Blood Count 4.74x10^6/uL (3.50-5.40) 3.98x10^6/uL (3.50-5.40) Hemoglobin 14.9g/dL (12.0-15.5) 12.3g/dL (12.0-15.5) Hematocrit 43.3% (36.0-47.0) 35.8% (36.0-47.0) Mean Corpuscular Volume 92fL (79-100) 90fL (79-100) Mean Corpuscular Hemoglobin 31pg (25-35) 31pg (25-35) Mean Corpuscular Hemoglobin Concent 34g/dL (31-37) 34g/dL (31-37) Red Cell Distribution Width 12.9% (11.5-14.5) 13.0% (11.5-14.5) Platelet Count 295x10^3/uL (140-400) 237x10^3/uL (140-400) Neutrophils (%) (Auto) 86% (31-73) 53% (31-73) Lymphocytes (%) (Auto) 9% (24-48) 41% (24-48) Monocytes (%) (Auto) 4% (0-9) 5% (0-9) Eosinophils (%) (Auto) 0% (0-3) 0% (0-3) Basophils (%) (Auto) 0% (0-3) 0% (0-3) Neutrophils # (Auto) 12.6x10^3uL (1.8-7.7) 7.0x10^3uL (1.8-7.7) Lymphocytes # (Auto) 1.4x10^3/uL (1.0-4.8) 5.3x10^3/uL (1.0-4.8) Monocytes # (Auto) 0.6x10^3/uL (0.0-1.1) 0.7x10^3/uL (0.0-1.1) Eosinophils # (Auto) 0.0x10^3/uL (0.0-0.7) 0.0x10^3/uL (0.0-0.7) Basophils # (Auto) 0.0x10^3/uL (0.0-0.2) 0.0x10^3/uL (0.0-0.2) Segmented Neutrophils % 80% (35-66) Band Neutrophils % 4% (0-9) Lymphocytes % 10% (24-48) Monocytes % 6% (0-10) Platelet Estimate Adequate (ADEQUATE) Sodium Level 143mmol/L (136-145) 144mmol/L (136-145) Potassium Level 4.1mmol/L (3.5-5.1) 3.6mmol/L (3.5-5.1) Chloride Level 106mmol/L (98-107) 110mmol/L (98-107) Carbon Dioxide Level 25mmol/L (21-32) 24mmol/L (21-32) Anion Gap 12 (6-14) 10 (6-14) Blood Urea Nitrogen 7mg/dL (7-20) 15mg/dL (7-20) Creatinine 0.8mg/dL (0.6-1.0) 1.0mg/dL (0.6-1.0) Estimated GFR (Cockcroft-Gault) 81.6 63.1 Glucose Level 110mg/dL (70-99) 88mg/dL (70-99) Calcium Level 9.5mg/dL (8.5-10.1) 8.3mg/dL (8.5-10.1) Total Bilirubin 0.5mg/dL (0.2-1.0) Direct Bilirubin 0.1mg/dL (0.0-0.2) Aspartate Amino Transf (AST/SGOT) 15U/L (15-37) Alanine Aminotransferase (ALT/SGPT) 20U/L (14-59) Alkaline Phosphatase 47U/L (46-116) Total Protein 7.5g/dL (6.4-8.2) Albumin 4.0g/dL (3.4-5.0) Lipase 79U/L (73-393) Medications Current Medications Ondansetron HCl (Zofran) 4 mg 1X ONCE IV Last administered on 04/24/16 14:09 ; Start 04/24/16 at 14:15; Stop 04/24/16 at 14:16; Status DC Famotidine (Pepcid) 20 mg 1X ONCE IVP Last administered on 04/24/16 14:14; Start 04/24/16 at 14:15; Stop 04/24/16 at 14:16; Status DC Ketorolac Tromethamine (Toradol) 15 mg 1X ONCE IV Last administered on 14:12; Start 04/24/16 at 14:15; Stop 04/24/16 at 14:16; Status DC Ondansetron HCl 4 mg 4 mg PRN Q8HRS PRN IV NAUSEA/VOMITING; Start 04/24/16 at 14:45; Stop 04/25/16 at 14:44 Sodium Chloride (Iv Sodium Chloride 0.9% 1000ml Bag) 1,000 ml @ 125 mls/hr Q8H IV Last administered on 04/24/16 15:25; Start 04/24/16 at 15:00; Stop at 14:59 Pantoprazole Sodium 40 mg 40 mg BID IVP Last administered on 04/24/16 23:00; Start 04/24/16 at 15:00; Stop 04/24/16 at 23:59; Status DC Sodium Chloride (Iv Sodium Chloride 0.9% 1000ml Bag) 1,000 ml @ 75 mls/hr [id number] IV Last administered on 04/25/16 04:47; Start 04/24/16 at 15:30 Pantoprazole Sodium (Protonix) 40 mg DAILYAC PO ; Start 04/25/16 at 07:30 Fentanyl Citrate (Fentanyl 2ml Vial) 25 mcg PRN Q2HR PRN IV PAIN Last administered on 04/24/16 18:43; Start 04/24/16 at 17:30 Prochlorperazine Edisylate (Compazine) 10 mg PRN Q6HRS PRN IV NAUSEA/VOMITING Last administered on 04/24/16 18:43; Start 04/24/16 at 18:45; Stop 04/25/16 at 18:44 Enoxaparin Sodium (Lovenox 40mg Syringe) 40 mg Q24H SQ ; Start 04/24/16 at 21:00 Hydralazine HCl (Apresoline) 10 mg PRN Q4HRS PRN IVP ELEVATED BP, SEE COMMENTS ; Start 04/24/16 at 18:45 Ondansetron HCl (Zofran) 4 mg PRN Q8HRS PRN IV NAUSEA/VOMITING; Start 04/24/16 at 18:45 Albuterol Sulfate 2.5 mg 2.5 mg PRN Q4HRS PRN NEB SHORTNESS OF BREATH; Start at 18:45 Sincalide/Sodium Chloride (Kinevac/Iv Sodium Chloride 0.9% 50ml) 30 ml @ 120 mls/hr 1X ONCE IV ; Start 04/25/16 at 10:30; Stop 04/25/16 at 10:44 Active Scripts Active Reported [i] Vitals/I & O Vital Sign - Last 24 Hours 04/24/16 04/24/16 04/24/16 04/24/16 12:20 12:43 13:13 13:43 Temp 98.6 98.6 Pulse 84 82 68 68 Resp 20 19 B/P 118/77 108/70 111/72 94/55 Pulse Ox 98 98 99 97 O2 Delivery Room Air Room Air Room Air Room Air 04/24/16 04/24/16 04/24/16 04/24/16 14:13 14:43 15:13 15:43 Pulse 74 66 72 74 Resp 16 18 B/P 116/74 111/68 116/76 114/72 Pulse Ox 98 98 98 97 O2 Delivery Room Air Room Air Room Air Room Air 04/24/16 04/24/16 04/24/16 04/24/16 16:13 16:53 16:55 19:00 Temp 98.4 98.2 98.4 98.2 Pulse 68 70 63 Resp 18 17 20 B/P 112/64 118/76 107/66 Pulse Ox 99 98 20 O2 Delivery Room Air Room Air Room Air Room Air 04/24/16 04/24/16 04/24/16 04/24/16 19:13 19:33 20:00 20:36 Temp 98.4 98.4 Pulse 70 B/P 118/76 Pulse Ox 98 98 O2 Delivery Room Air Room Air Room Air Room Air 04/24/16 04/25/16 04/25/16 23:17 03:00 07:00 Temp 98.1 98.4 98.2 98.1 98.4 98.2 Pulse 67 54 73 Resp 20 20 18 B/P 118/63 99/65 132/82 Pulse Ox 98 96 97 O2 Delivery Room Air Room Air Room Air Intake and Output 04/24/16 04/24/16 04/25/16 15:00 23:00 07:00 Intake Total 0 ml Balance 0 ml XAVI SOLORIO MD Apr 25, 2016 10:23
[2016-04-25] MEDS ORDERED: SINCALIDE 1.45 MCG in IV NORMAL SALINE 50ML 30 ML IV ONE (10:30)
[2016-04-25] MEDS: FENTANYL PF 100 MCG/2 ML VIAL. IV PRN (11:46)
--- NOTE | 2016-04-25 11:50 | RAD ---
Radionuclide hepatobiliary scan with gallbladder ejection fraction, 04/25/2016: History: Epigastric pain, nausea and vomiting Following IV injection of 5.5 mCi of technetium 99m Choletec there was prompt uptake of the radionuclide from the blood stream by the liver. Activity is present in the gallbladder and bile ducts at 15 minutes. Small bowel activity develops at 20 minutes. Additional imaging of the gallbladder was performed following IV injection of 1.4 mcg of cholecystokinin. There is very little gallbladder emptying. The gallbladder ejection fraction was calculated at 1%. IMPRESSION: 1. No evidence of cystic duct or common bile duct obstruction. 2. Abnormal response to cholecystokinin injection with little if any gallbladder emptying.
[2016-04-25 11:55] VITALS: BP 138/96
[2016-04-25] MEDS ORDERED: KETOROLAC TROMETHAMINE 30 MG/ML SYRINGE. IV ONE (13:45)
--- NOTE | 2016-04-25 13:53 | PDOC2 ---
CONSULT Date of Consult Date of Consult DATE: 04/25/16 TIME: 13:49 History of Present Illness Reason for Visit: The patient is a 35 year old female with a 1 week history of abdominal pain. The pain is constant and worsens after eating. The pain is located in the upper mid abdomen and at times radiates to the right shoulder. She has associated nausea and no vomiting. Past Surgical History Past Surgical History tonsillectomy, ear tubes Social History No ALCOHOL: social Drugs: None Current Problem List Problem List Problems Medical Problems: (1) Epigastric abdominal pain Status: Acute (2) Nausea and vomiting Status: Acute Current Medications Current Medications Current Medications Ondansetron HCl (Zofran) 4 mg 1X ONCE IV Last administered on 04/24/16 14:09 ; Start 04/24/16 at 14:15; Stop 04/24/16 at 14:16; Status DC Famotidine (Pepcid) 20 mg 1X ONCE IVP Last administered on 04/24/16 14:14; Start 04/24/16 at 14:15; Stop 04/24/16 at 14:16; Status DC Ketorolac Tromethamine (Toradol) 15 mg 1X ONCE IV Last administered on 14:12; Start 04/24/16 at 14:15; Stop 04/24/16 at 14:16; Status DC Ondansetron HCl 4 mg 4 mg PRN Q8HRS PRN IV NAUSEA/VOMITING Last administered on 04/25/16 11:46; Start 04/24/16 at 14:45; Stop 04/25/16 at 14:44 Sodium Chloride (Iv Sodium Chloride 0.9% 1000ml Bag) 1,000 ml @ 125 mls/hr Q8H IV Last administered on 04/24/16 15:25; Start 04/24/16 at 15:00; Stop at 14:59 Pantoprazole Sodium 40 mg 40 mg BID IVP Last administered on 04/24/16 23:00; Start 04/24/16 at 15:00; Stop 04/24/16 at 23:59; Status DC Sodium Chloride (Iv Sodium Chloride 0.9% 1000ml Bag) 1,000 ml @ 75 mls/hr [id number] IV Last administered on 04/25/16 04:47; Start 04/24/16 at 15:30 Pantoprazole Sodium (Protonix) 40 mg DAILYAC PO ; Start 04/25/16 at 07:30 Fentanyl Citrate (Fentanyl 2ml Vial) 25 mcg PRN Q2HR PRN IV PAIN Last administered on 04/25/16 11:46; Start 04/24/16 at 17:30 Prochlorperazine Edisylate (Compazine) 10 mg PRN Q6HRS PRN IV NAUSEA/VOMITING Last administered on 04/24/16 18:43; Start 04/24/16 at 18:45; Stop 04/25/16 at 18:44 Enoxaparin Sodium (Lovenox 40mg Syringe) 40 mg Q24H SQ ; Start 04/24/16 at 21:00 Hydralazine HCl (Apresoline) 10 mg PRN Q4HRS PRN IVP ELEVATED BP, SEE COMMENTS ; Start 04/24/16 at 18:45 Ondansetron HCl (Zofran) 4 mg PRN Q8HRS PRN IV NAUSEA/VOMITING; Start 04/24/16 at 18:45 Albuterol Sulfate 2.5 mg 2.5 mg PRN Q4HRS PRN NEB SHORTNESS OF BREATH; Start at 18:45 Sincalide/Sodium Chloride (Kinevac/Iv Sodium Chloride 0.9% 50ml) 30 ml @ 120 mls/hr 1X ONCE IV Last administered on 04/25/16 11:29; Start 04/25/16 at 10: 30; Stop 04/25/16 at 10:44; Status DC Ketorolac Tromethamine (Toradol) 30 mg 1X ONCE IV ; Start 04/25/16 at 13:45; Stop 04/25/16 at 13:46; Status DC Active Scripts Active Reported [i] Allergies Allergies: Coded Allergies: Penicillins (Verified Allergy, Intermediate, Hives, 04/25/16) acetaminophen (Verified Allergy, Intermediate, Hives, 04/25/16) hydrocodone (Verified Allergy, Intermediate, Hives, 04/25/16) vancomycin (Verified Allergy, Intermediate, "Artem Syndrome." , 04/25/16) hydromorphone (Verified Adverse Reaction, Intermediate, Whole body shaking -"Said it was an adverse reaction." , 04/25/16) ROS General: No: Appetite, Chills, Fatigue, Malaise, Night Sweats, Other PSYCHOLOGICAL ROS: No: Anxiety, Behavioral Disorder, Concentration difficultie , Decreased libido, Depression, Disorientation, Hallucinations, Hostility, Irritablity, Memory difficulties, Mood Swings, Obsessive thoughts, Other, Physical abuse, Sexual abuse, Sleep disturbances, Suicidal ideation Eyes: No Blurry vision, No Decreased vision, No Double vision, No Dry eyes, No Excessive tearing, No Eye Pain, No Itchy Eyes, No Loss of vision, No Other, No Photophobia, No Scotomata, No Uses contacts, No Uses glasses HEENT: No: Epistaxis, Heacaches, Hearing change, Nasal congestion, Nasal discharge, Oral lesions, Other, Sinus pain, Sneezing, Snoring, Sore Throat, Tinnitus, Vertigo, Visual Changes, Vocal changes ALLERGY AND IMMUNOLOGY: No: Hives, Insect Bite Sensitivity, Itchy/Watery Eyes, Nasal Congestion, Other, Post Nasal Drip, Seasonal Allergies Hematological and Lymphatic: No: Bleeding Problems, Blood Clots, Blood Transfusions, Brusing, Night Sweats, Other, Pallor, Swollen Lymph Nodes ENDOCRINE: No: Breast Changes, Galactorrhea, Hair Pattern Changes, Hot Flashes , Malaise/lethargy, Mood Swings, Other, Palpitations, Polydipsia/polyuria, Skin Changes, Temperature Intolerance, Unexpected Weight Changes Respiratory: No: Cough, Hemoptysis, Orthopnea, Other, Pleuritic Pain, SOB with excertion, Shortness of breath, Sputum Changes, Stridor, Tachypnea, Wheezing Cardiovascular: No Chest Pain, No Edema, No Lt Headedness, No Orthopnea, No Other, No Palpitations, No Paroxysmal Noc. Dyspnea Gastrointestinal: Yes Abdominal Pain, Yes Nausea Genitourinary: No , No , No , No , No , No , No , No Discharge, No Dysuria, No Flank Pain, No Frequency, No Hematuria, No Incontinence, No Other, No Pain, No Retention, No Urgency Musculoskeletal: No Gait Disturbance, No Joint Pain, No Joint Stiffness, No Joint Swelling, No Muscle Pain, No Muscular Weakness, No Other, No Pain In:, No Swelling In: Neurological: No Behavorial Changes, No Bowel/Bladder ControlChng, No Confusion , No Dizziness, No Gait Disturbance, No Headaches, No Impaired Coord/balance, No Memory Loss, No Numbness/Tingling, No Other, No Seizures, No Speech Problems , No Tremors, No Visual Changes, No Weakness Skin: No Acne, No Dry Skin, No Eczema, No Hair Changes, No Lumps, No Mole Changes, No Mottling, No Nail Changes, No Other, No Pruritus, No Rash, No Skin Lesion Changes Physical Exam General: Alert, Oriented X3, Cooperative, No acute distress HEENT: Atraumatic Lungs: Clear to auscultation Heart: Regular rate Abdomen: Soft (pain in upper mid abdomen) Extremities: No clubbing, No cyanosis, No edema Skin: No rashes, No breakdown Neuro: Normal speech Psych/Mental Status: Mental status NL Vitals VITALS Vital Signs Date Time Temp Pulse Resp B/P Pulse Ox O2 Delivery O2 Flow Rate FiO2 04/25/16 12:16 97 Room Air 04/25/16 11:55 97.9 79 18 138/96 97.9 Labs Labs Laboratory Tests Test 04/24/16 12:18 04/24/16 12:25 04/25/16 05:03 Urine Collection Type Unknown Urine Color Yellow Urine Clarity Clear Urine pH 6.5 Urine Specific [place] 1.010 Urine Protein Negativemg/dL (NEG-TRACE) Urine Glucose (UA) Negativemg/dL (NEG) Urine Ketones (Stick) Negativemg/dL (NEG) Urine Blood Negative (NEG) Urine Nitrite Negative (NEG) Urine Bilirubin Negative (NEG) Urine Urobilinogen Dipstick 0.2mg/dL (0.2 mg/dL) Urine Leukocyte Esterase Trace (NEG) Urine RBC 0/HPF (0-2) Urine WBC 5-10/HPF (0-4) Urine Bacteria Many/HPF (0-FEW) Urine Test Negative (NEG) White Blood Count 14.6x10^3/uL (4.0-11.0) 13.0x10^3/uL (4.0-11.0) Red Blood Count 4.74x10^6/uL (3.50-5.40) 3.98x10^6/uL (3.50-5.40) Hemoglobin 14.9g/dL (12.0-15.5) 12.3g/dL (12.0-15.5) Hematocrit 43.3% (36.0-47.0) 35.8% (36.0-47.0) Mean Corpuscular Volume 92fL (79-100) 90fL (79-100) Mean Corpuscular Hemoglobin 31pg (25-35) 31pg (25-35) Mean Corpuscular Hemoglobin Concent 34g/dL (31-37) 34g/dL (31-37) Red Cell Distribution Width 12.9% (11.5-14.5) 13.0% (11.5-14.5) Platelet Count 295x10^3/uL (140-400) 237x10^3/uL (140-400) Neutrophils (%) (Auto) 86% (31-73) 53% (31-73) Lymphocytes (%) (Auto) 9% (24-48) 41% (24-48) Monocytes (%) (Auto) 4% (0-9) 5% (0-9) Eosinophils (%) (Auto) 0% (0-3) 0% (0-3) Basophils (%) (Auto) 0% (0-3) 0% (0-3) Neutrophils # (Auto) 12.6x10^3uL (1.8-7.7) 7.0x10^3uL (1.8-7.7) Lymphocytes # (Auto) 1.4x10^3/uL (1.0-4.8) 5.3x10^3/uL (1.0-4.8) Monocytes # (Auto) 0.6x10^3/uL (0.0-1.1) 0.7x10^3/uL (0.0-1.1) Eosinophils # (Auto) 0.0x10^3/uL (0.0-0.7) 0.0x10^3/uL (0.0-0.7) Basophils # (Auto) 0.0x10^3/uL (0.0-0.2) 0.0x10^3/uL (0.0-0.2) Segmented Neutrophils % 80% (35-66) Band Neutrophils % 4% (0-9) Lymphocytes % 10% (24-48) Monocytes % 6% (0-10) Platelet Estimate Adequate (ADEQUATE) Sodium Level 143mmol/L (136-145) 144mmol/L (136-145) Potassium Level 4.1mmol/L (3.5-5.1) 3.6mmol/L (3.5-5.1) Chloride Level 106mmol/L (98-107) 110mmol/L (98-107) Carbon Dioxide Level 25mmol/L (21-32) 24mmol/L (21-32) Anion Gap 12 (6-14) 10 (6-14) Blood Urea Nitrogen 7mg/dL (7-20) 15mg/dL (7-20) Creatinine 0.8mg/dL (0.6-1.0) 1.0mg/dL (0.6-1.0) Estimated GFR (Cockcroft-Gault) 81.6 63.1 Glucose Level 110mg/dL (70-99) 88mg/dL (70-99) Calcium Level 9.5mg/dL (8.5-10.1) 8.3mg/dL (8.5-10.1) Total Bilirubin 0.5mg/dL (0.2-1.0) Direct Bilirubin 0.1mg/dL (0.0-0.2) Aspartate Amino Transf (AST/SGOT) 15U/L (15-37) Alanine Aminotransferase (ALT/SGPT) 20U/L (14-59) Alkaline Phosphatase 47U/L (46-116) Total Protein 7.5g/dL (6.4-8.2) Albumin 4.0g/dL (3.4-5.0) Lipase 79U/L (73-393) Laboratory Tests Test 04/25/16 05:03 White Blood Count 13.0x10^3/uL (4.0-11.0) Red Blood Count 3.98x10^6/uL (3.50-5.40) Hemoglobin 12.3g/dL (12.0-15.5) Hematocrit 35.8% (36.0-47.0) Mean Corpuscular Volume 90fL (79-100) Mean Corpuscular Hemoglobin 31pg (25-35) Mean Corpuscular Hemoglobin Concent 34g/dL (31-37) Red Cell Distribution Width 13.0% (11.5-14.5) Platelet Count 237x10^3/uL (140-400) Neutrophils (%) (Auto) 53% (31-73) Lymphocytes (%) (Auto) 41% (24-48) Monocytes (%) (Auto) 5% (0-9) Eosinophils (%) (Auto) 0% (0-3) Basophils (%) (Auto) 0% (0-3) Neutrophils # (Auto) 7.0x10^3uL (1.8-7.7) Lymphocytes # (Auto) 5.3x10^3/uL (1.0-4.8) Monocytes # (Auto) 0.7x10^3/uL (0.0-1.1) Eosinophils # (Auto) 0.0x10^3/uL (0.0-0.7) Basophils # (Auto) 0.0x10^3/uL (0.0-0.2) Sodium Level 144mmol/L (136-145) Potassium Level 3.6mmol/L (3.5-5.1) Chloride Level 110mmol/L (98-107) Carbon Dioxide Level 24mmol/L (21-32) Anion Gap 10 (6-14) Blood Urea Nitrogen 15mg/dL (7-20) Creatinine 1.0mg/dL (0.6-1.0) Estimated GFR (Cockcroft-Gault) 63.1 Glucose Level 88mg/dL (70-99) Calcium Level 8.3mg/dL (8.5-10.1) Images Images HIDA: IMPRESSION: 1. No evidence of cystic duct or common bile duct obstruction. 2. Abnormal response to cholecystokinin injection with little if any gallbladder emptying. Assessment/Plan Assessment/Plan 35 year old female with abdominal pain, very abnormal PIPIDA. Recommend lap fazal; I discussed the details and risks of surgery. She would like to proceed. She is scheduled for tomorrow morning, thanks!! YEFRI ROGERS MD Apr 25, 2016 13:53
[2016-04-25] MEDS: PROCHLORPERAZINE 10 MG/2 ML VIAL. IV PRN (14:01)
[2016-04-25 15:11] VITALS: BP 126/83
[2016-04-25 19:00] VITALS: BP 114/76
[2016-04-25] MEDS: ENOXAPARIN 40 MG/0.4 ML DISP.SYRIN. SQ SCH (21:06)
[2016-04-25 23:00] VITALS: BP 117/70
[2016-04-26 03:00] VITALS: BP 115/81
[2016-04-26] MEDS: FENTANYL PF 100 MCG/2 ML VIAL. IV PRN ×2 (03:35→05:28)
[2016-04-26 06:08] LABS: BASO % 0 % (0-3); EOS % 1 % (0-3); HEMATOCRIT 38.9 % (36.0-47.0); HEMOGLOBIN 13.5 g/dL (12.0-15.5); LYMPH # 3.5 x10^3/uL (1.0-4.8); LYMPH % 38 % (24-48); MEAN CORPUSCULAR HEMOGLOBIN 31 pg (25-35); MEAN CORPUSCULAR HGB CONC 35 g/dL (31-37); MEAN CORPUSCULAR VOLUME 89 fL (79-100); MONO % 7 % (0-9); NEUT % 54 % (31-73); PLATELET COUNT 227 x10^3/uL (140-400); RED BLOOD COUNT 4.36 x10^6/uL (3.50-5.40); RED CELL DISTRIBUTION WIDTH 12.8 % (11.5-14.5)
[2016-04-26 06:34] LABS: CALCIUM 8.6 mg/dL (8.5-10.1); CREATININE 0.8 mg/dL (0.6-1.0); GFR 81.6; POTASSIUM 3.5 mmol/L (3.5-5.1)
[2016-04-26] MEDS ORDERED: PROCHLORPERAZINE 10 MG/2 ML VIAL. IV PRN (07:00)
[2016-04-26] MEDS ORDERED: IV RINGERS,LACTATED 1000ML 1,000 ML IV SCH (07:00)
[2016-04-26] MEDS ORDERED: FENTANYL PF 100 MCG/2 ML VIAL. IV PRN ×2 (07:00)
[2016-04-26] MEDS ORDERED: CEFAZOLIN 2GM PREMIX 50 ML IV SCH (07:00)
[2016-04-26] MEDS ORDERED: ONDANSETRON PF 4 MG/2 ML VIAL. IV PRN (07:00)
[2016-04-26] MEDS ORDERED: LIDOCAINE 1% 1 ML SYRINGE. ID PRN (07:00)
[2016-04-26] MEDS ORDERED: SURGICEL HEMOSTAT 4X8 EACH. ONE (07:04)
[2016-04-26] MEDS ORDERED: BUPIVAC MPF-EPI 0.5%-1:200000 30 ML VIAL. ONE (07:04)
[2016-04-26] MEDS ORDERED: IOHEXOL 300 MG/ML 50 ML VIAL. ONE (07:04)
[2016-04-26] MEDS ORDERED: FENTANYL PF 100 MCG/2 ML VIAL. ONE (07:29)
[2016-04-26] MEDS ORDERED: ROCURONIUM 50 MG/5 ML VIAL. ONE (07:29)
[2016-04-26] MEDS ORDERED: LIDOCAINE 2% 100 MG/5 ML DISP.SYRIN. ONE (07:40)
[2016-04-26] MEDS ORDERED: NEOSTIGMINE METHYLSULFATE 5 MG/5 ML SYRINGE. ONE (07:40)
[2016-04-26] MEDS ORDERED: PROPOFOL 20 ML IV ONE (07:40)
[2016-04-26] MEDS ORDERED: DESFLURANE 61 TO 120 MINUTES IH ONE (07:40)
[2016-04-26] MEDS ORDERED: GLYCOPYRROLATE 1 MG/5 ML VIAL. ONE (07:40)
[2016-04-26] MEDS ORDERED: DEXAMETHASONE SOD PHOS 20 MG/5 ML VIAL. ONE (07:40)
[2016-04-26] MEDS ORDERED: ONDANSETRON PF 4 MG/2 ML VIAL. ONE (07:40)
--- NOTE | 2016-04-26 08:32 | RAD ---
Indication: Intraoperative cholangiogram. 2 images of the right upper quadrant were obtained during the performance of an intraoperative cholangiogram. Contrast has been injected via the cystic duct remnant. There is opacification of normal caliber intrahepatic and extra hepatic bile ducts. No filling defects are seen to suggest retained common duct stone. There is normal passage of contrast into the small bowel. Impression: No evidence of retained common bile duct stone.
[2016-04-26] MEDS ORDERED: KETOROLAC 60 MG/2 ML SYRINGE FOR OR. ONE (08:36)
--- NOTE | 2016-04-26 08:48 | PDOC4 ---
Operative Note Operative Note Operative Note: Preoperative Diagnosis: Biliary dyskinesia Postoperative Diagnosis: Same Procedure: Laparoscopic cholecystectomy with intraoperative cholangiogram Surgeons: Omari Anesthesia: Gen. Estimated Blood Loss: 10 mL Specimen: Gallbladder to pathology Drains: None Complications: None Indications: The patient is a 35 year old female who is been experiencing recurrent upper abdominal pain and nausea. Her evaluation included a HIDA scan showing a very low gallbladder EF of 1% consistent with biliary dyskinesia. Surgical treatment was offered by means of a laparoscopic cholecystectomy. The risks of surgery were discussed which include bleeding, infection, bile duct injury, bile leak, pain, the potential for additional surgeries or procedures. The patient understands and would like to proceed. Description: The patient was taken to the operating room and laid supine on the operating table. General anesthesia was performed. The abdomen was prepped with ChloraPrep and draped in a standard surgical fashion. A small infraumbilical incision was made with a scalpel. The Veress needle was then inserted and a pneumoperitoneum was then created. A 5 mm trocar was then inserted and the laparoscope was introduced. In the upper midabdomen a 5 mm trocar was inserted and in the right upper quadrant two 2.3 mm mini lap graspers were inserted. The gallbladder was retracted cephalad. The cystic duct was dissected free from surrounding tissues. One clip was placed on the duct near the gallbladder junction. An opening was made in the duct and a cholangiocatheter placed within and secured with a clip. Using contrast dye and fluoroscopy an intraoperative cholangiogram was performed that appeared unremarkable. The clip and catheter were then withdrawn. Three clips were placed on the cystic duct and it was divided. The cystic artery was then identified, dissected free, doubly clipped and divided as well. The gallbladder was then mobilized away from the liver with cautery. The umbilical 5 millimeter trocar was exchanged for an 11 millimeter trocar. The gallbladder was then placed in an endoscopic bag and extracted at the umbilical trocar site. The fascia there was closed with an 0 Vicryl suture. All blood and irrigation fluid was suctioned and hemostasis was good. The remaining ports were removed and the pneumoperitoneum was relieved. The skin incisions were injected with half percent Marcaine with epinephrine, and all were closed using 4-0 Monocryl suture. Steri-Strips and dressings were then applied. The patient tolerated the procedure well and was sent to the recovery room in stable condition. At the end of the case all counts were correct. YEFRI ROGERS MD Apr 26, 2016 08:48
[2016-04-26] MEDS ORDERED: OXYCODONE/APAP 5/325 TABLET. PO PRN ×2 (09:00)
[2016-04-26] MEDS: IV NORMAL SALINE 1000ML BAG 1,000 ML IV SCH (10:35)
[2016-04-26] MEDS: PANTOPRAZOLE 40 MG TABLET. PO SCH (10:35)
[2016-04-26 11:09] VITALS: BP 128/94
--- NOTE | 2016-04-26 12:49 | PDOC ---
Subjective: Subjective: Feeling great after surgery. Objective: Vital Signs: Vital Signs Date Time Temp Pulse Resp B/P Pulse Ox O2 Delivery O2 Flow Rate FiO2 04/26/16 12:13 16 Room Air 04/26/16 11:09 97.8 105 128/94 99 97.8 Labs: Laboratory Tests Test 04/26/16 05:50 White Blood Count 9.0x10^3/uL Red Blood Count 4.36x10^6/uL Hemoglobin 13.5g/dL Hematocrit 38.9% Mean Corpuscular Volume 89fL Mean Corpuscular Hemoglobin 31pg Mean Corpuscular Hemoglobin Concent 35g/dL Red Cell Distribution Width 12.8% Platelet Count 227x10^3/uL Neutrophils (%) (Auto) 54% Lymphocytes (%) (Auto) 38% Monocytes (%) (Auto) 7% Eosinophils (%) (Auto) 1% Basophils (%) (Auto) 0% Neutrophils # (Auto) 4.9x10^3uL Lymphocytes # (Auto) 3.5x10^3/uL Monocytes # (Auto) 0.6x10^3/uL Eosinophils # (Auto) 0.1x10^3/uL Basophils # (Auto) 0.0x10^3/uL Sodium Level 142mmol/L Potassium Level 3.5mmol/L Chloride Level 107mmol/L Carbon Dioxide Level 25mmol/L Anion Gap 10 Blood Urea Nitrogen 10mg/dL Creatinine 0.8mg/dL Estimated GFR (Cockcroft-Gault) 81.6 Glucose Level 86mg/dL Calcium Level 8.6mg/dL PE: GEN: NAD ABD: soft NEURO/PSYCH: A & O 3 A/P: Upper abd pain, nausea - resolved s/p cholecystectomy for biliary dyskinesia -- Improved following surgery. DC per surgery, follow-up PRN. KALINA KENNY Apr 26, 2016 12:49
[2016-04-26] MEDS ORDERED: LEVO500T38 PO (14:30)
[2016-04-26 15:00] VITALS: BP 119/89
[2016-04-26 15:27] VITALS: BP 130/88
--- NOTE | 2016-04-26 21:33 | DS ---
DATE OF DISCHARGE: 04/26/2016 DISCHARGE DIAGNOSES: 1. Epigastric abdominal pain due to biliary dyskinesia, status post cholecystectomy by Dr. Salcido. 2. Urinary tract infection, present on admission, E. coil. BRIEF HOSPITAL COURSE: A 35-year-old female patient admitted to the hospital for acute abdominal pain, epigastric in nature and the patient's abdominal pain is intractable in nature and she had a HIDA scan which is suggestive of biliary dyskinesia. Her ejection fraction is 1%. She was seen by General Surgery and recommended to have cholecystectomy given her intractable nature of the pain. Postoperatively, the patient's symptoms improved and able to tolerate that very well. No nausea symptoms. Pain has been tolerable with oral medications. Today, she is stable to go home and see Dr. Salcido in 2 weeks. DISCHARGE PHYSICAL EXAMINATION: GENERAL: Alert, oriented x 3. HEART: S1, S2 present. LUNGS: Clear to auscultation. ABDOMEN: Soft, nontender, no organomegaly. EXTREMITIES: No edema. DISCHARGE DISPOSITION: Home. DISCHARGE CONDITION: Stable. DISCHARGE MEDICATIONS: Reviewed and reconciled. Please see MRAD. DISCHARGE FOLLOWUP: With Dr. Salcido in 1-2 weeks. Total time spent for discharge is 35 minutes for patient's education, counseling and coordination of care. XAVI SOLORIO MD DR: ELEAZAR/abram JOB#: [id number] / [id number] [place]
--- NOTE | 2016-04-27 16:05 | PATHOLOGY ---
PATHOLOGY REPORT * * * * * * * * FINAL DIAGNOSIS: Gallbladder, laparoscopic cholecystectomy: - Chronic cholecystitis. COMMENT: There are no calculi identified within the gallbladder lumen or specimen container. There is no evidence of malignancy. (JPM:; d/t: 04/27/16) REPORT ELECTRONICALLY SIGNED BY: Pola Chavez M.D. DATE/TIME: 04/27/2016 16:04 * * * * * * * * GROSS PATHOLOGY: Received in formalin labeled "Princess Griffiths, gallbladder and contents," is a 6.3 x 3.2 x 2.4 cm, previously punctured gallbladder with bile-stained serosal surfaces. Opening the gallbladder reveals a velvety, bile-stained mucosa and an average wall thickness of 0.1 cm. Calculi are not present and no masses are noted grossly. Relay Checker sections from the body and fundus are submitted along with the proximal margin in cassette A1. (CAA; 04/26/2016) INITIAL CPT CODE(S): A; 66689 Professional services performed [place] [facility] [address] Technical services performed by [facility] at [address] [place] [address] [address] [address]. SPECIMEN(S) RECEIVED: A.Gallbladder and contents CLINICAL HISTORY: Abdominal pain, Acalculous gallbladder PATIENT: PRINCESS GRIFFITHS /AGE: 2 1980 (Age: 35) PATIENT #: [id number] ALT CASE #: SPECIMEN COLLECTION DATE: 04/26/2016 SPECIMEN RECEIVED DATE: 04/26/2016 [facility] [place] [address] - PHONE: [phone] * * * END OF REPORT * * *
== END 2016-04-26 16:00 | disposition home or self-care (01) | DRG 418 ==
LOC: ER 11:39 → EDBD 11:39 → 5 SOUTH 14:10
PROVIDERS: ADMIT Internal Medicine; ATTEND Internal Medicine
PROC: BF121ZZ Fluoroscopy of Gallbladder using Low Osmolar Contrast (ICD-10-PCS; 2016-04-26)
PROC: 0FT44ZZ Resection of Gallbladder, Percutaneous Endoscopic Approach (ICD-10-PCS; 2016-04-26)
PROC: CF241ZZ Tomographic (Tomo) Nuclear Medicine Imaging of Gallbladder using Technetium 99m (Tc-99m) (ICD-10-PCS; principal; 2016-04-26 07:30)
DX: K82.8 Other specified diseases of gallbladder (principal); N39.0 Urinary tract infection, site not specified; K76.0 Fatty (change of) liver, not elsewhere classified; K21.9 Gastro-esophageal reflux disease without esophagitis; B96.20 Unspecified Escherichia coli [E. coli] as the cause of diseases classified elsewhere; Z88.6 Allergy status to analgesic agent; Z88.1 Allergy status to other antibiotic agents; Z88.5 Allergy status to narcotic agent; Z88.0 Allergy status to penicillin; Z88.8 Allergy status to other drugs, medicaments and biological substances; Z90.89 Acquired absence of other organs
CPT/HCPCS: 36415; 74020; 74300; 76705; 78226; 80048; 80076; 81001; 81025; 83690; 85007; 85027; 87086; 87186; 88304; 94250; 94760; 96374; 96375; 96376; A9537; C1769; C1782; C9113; J0690; J0780; J1100; J1650; J1885; J2405; J2704; J2710; J2805; J3010; J3490; J7030; Q9967; S0028; 99285-25

== ENCOUNTER 2016-07-10 20:35 | Emergency (ER) | payer OTHER ==
[~2016-07-10] VITALS: Ht 167.6 cm; Wt 74.8 kg
[~2016-07-10 20:35] MED LIST: LEVO500T38 PO; [UNRECOGNIZED DRUG - OTHER]
[2016-07-10 21:22] LABS: BASO # 0.1 x10^3/uL (0.0-0.2); BASO % 1 % (0-3); EOS % 2 % (0-3); HEMATOCRIT 41.2 % (36.0-47.0); HEMOGLOBIN 13.9 g/dL (12.0-15.5); LYMPH # 4.8 x10^3/uL (1.0-4.8); LYMPH % 41 % (24-48); MEAN CORPUSCULAR HEMOGLOBIN 31 pg (25-35); MEAN CORPUSCULAR HGB CONC 34 g/dL (31-37); MEAN CORPUSCULAR VOLUME 92 fL (79-100); MONO % 7 % (0-9); NEUT % 50 % (31-73); PLATELET COUNT 275 x10^3/uL (140-400); RED BLOOD COUNT 4.46 x10^6/uL (3.50-5.40); RED CELL DISTRIBUTION WIDTH 13.1 % (11.5-14.5); WHITE BLOOD COUNT 11.8 x10^3/uL (4.0-11.0)
[2016-07-10 21:35] LABS: NEG OBC SER NEG; POS OBC SER POS
[2016-07-10 21:40] LABS: ALBUMIN 4.1 g/dL (3.4-5.0); CALCIUM 8.8 mg/dL (8.5-10.1); CREATININE 0.8 mg/dL (0.6-1.0); DIRECT BILIRUBIN 0.1 mg/dL (0.0-0.2); GFR 81.2; POTASSIUM 3.6 mmol/L (3.5-5.1); TOTAL BILIRUBIN 0.3 mg/dL (0.2-1.0); TOTAL PROTEIN 7.4 g/dL (6.4-8.2)
[2016-07-10 21:43] VITALS: BP 119/66
--- NOTE | 2016-07-10 22:17 | PHYS DOC ---
Past Medical History Past Medical History: GERD, Kidney Stone Past Surgical History: Cholecystectomy, Tonsillectomy, Other Additional Past Surgical Histo: BX EAR, "part" of tonsils Alcohol Use: Rarely Drug Use: None Adult General Chief Complaint Chief Complaint: CHEST PAIN HPI HPI Patient is a 36 year old female who has no history of hypertension, diabetes, CHF, COPD, liver longer problems. Patient reports she does have discussed history of kidney stones. Patient is status post a cholecystectomy 2 months ago. Patient presents here today complaining of chest pain that started approximately 6:30 PM. Patient reports the pain was left-sided and sharp in nature. Patient reports that the pain radiated to her left arm. Patient denies any pain radiate to her jaw or to her back. Patient has any nausea vomiting diarrhea shortness of breath or diaphoresis. Patient denies any family history of coronary artery disease. Patient denies any high cholesterol. Patient does not smoke. Patient does not do any drugs. Patient reports that she was sitting while the pain started. Patient reports that the pain has significantly improved while sitting here. Patient denies any other symptomatology. Patient has any fevers shakes chills nausea vomiting diarrhea cough cold or runny nose. Patient has a dysuria frequency or urgency. Patient denies any weakness or upper or lower extremity. Patient reports that she feels that this pain is likely secondary to reflux disease. The patient's physical exam was unremarkable in the ER. Patient's heart was regular rate and rhythm without any murmurs. Patient's lungs are clear without any wheezing rales or rhonchi. Patient did not have any reproducible tenderness to palpation of her anterior chest wall. The patient's EKG revealed normal sinus rhythm with no acute pathology. After all within normal limits. Patient normal troponin and d-dimer. A/P #1 nonspecific chest pain. Etiology unclear. Patient is extremely low risk for cardiac etiology or chest pain. Utilizing care decision-making patient has opted to be discharged home for further evaluation by her primary care physician. Patient does not feel that this is cardiac etiology given her normal labs and EKG. 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 Review of Systems Review of Systems Constitutional: Denies fever or chills [] Eyes: Denies change in visual acuity, redness, or eye pain [] All other review systems are negative except as documented in the history of present illness portion. Allergies Allergies Allergies Coded Allergies Type Severity Reaction Last Updated Verified Cephalosporins Allergy Intermediate 07/10/16 No Penicillins Allergy Intermediate Hives 07/10/16 Yes hydrocodone Allergy Intermediate Hives 07/10/16 Yes sulfamethoxazole Allergy Intermediate 07/10/16 No trimethoprim Allergy Intermediate 07/10/16 No vancomycin Allergy Intermediate "Artem Syndrome." 07/10/16 Yes hydromorphone Adverse Reaction Intermediate Whole body shaking-"Said it was an adverse reaction." 07/10/16 Yes Physical Exam Physical Exam Constitutional: Well developed, well nourished, no acute distress, non-toxic appearance. [] HENT: Normocephalic, atraumatic, bilateral external ears normal, oropharynx moist, no oral exudates, nose normal. [] Eyes: PERRLA, EOMI, conjunctiva normal, no discharge. [] Neck: Normal range of motion, no tenderness, supple, no stridor. [] Cardiovascular:Heart rate regular rhythm, no murmur [] Lungs & Thorax: Bilateral breath sounds clear to auscultation [] Abdomen: Bowel sounds normal, soft, no tenderness, no masses, no pulsatile masses. [] Skin: Warm, dry, no erythema, no rash. [] Back: No tenderness, no CVA tenderness. [] Extremities: No tenderness, no cyanosis, no clubbing, ROM intact, no edema. [] Neurologic: Alert and oriented X 3, normal motor function, normal sensory function, no focal deficits noted. [] Psychologic: Affect normal, judgement normal, mood normal. [] Current Patient Data Vital Signs Vital Signs Date Time Temp Pulse Resp B/P Pulse Ox O2 Delivery O2 Flow Rate FiO2 07/10/16 21:43 75 18 119/66 100 Room Air 07/10/16 20:50 98.3 98.3 Lab Values Laboratory Tests Test 07/10/16 20:13 07/10/16 20:55 POC Urine HCG, Qualitative Hcg negative (Negative) White Blood Count 11.8x10^3/uL (4.0-11.0) H Red Blood Count 4.46x10^6/uL (3.50-5.40) Hemoglobin 13.9g/dL (12.0-15.5) Hematocrit 41.2% (36.0-47.0) Mean Corpuscular Volume 92fL (79-100) Mean Corpuscular Hemoglobin 31pg (25-35) Mean Corpuscular Hemoglobin Concent 34g/dL (31-37) Red Cell Distribution Width 13.1% (11.5-14.5) Platelet Count 275x10^3/uL (140-400) Neutrophils (%) (Auto) 50% (31-73) Lymphocytes (%) (Auto) 41% (24-48) Monocytes (%) (Auto) 7% (0-9) Eosinophils (%) (Auto) 2% (0-3) Basophils (%) (Auto) 1% (0-3) Neutrophils # (Auto) 5.9x10^3uL (1.8-7.7) Lymphocytes # (Auto) 4.8x10^3/uL (1.0-4.8) Monocytes # (Auto) 0.8x10^3/uL (0.0-1.1) Eosinophils # (Auto) 0.3x10^3/uL (0.0-0.7) Basophils # (Auto) 0.1x10^3/uL (0.0-0.2) D-Dimer (Leslie) 0.46ug/mlFEU (0.00-0.50) Sodium Level 143mmol/L (136-145) Potassium Level 3.6mmol/L (3.5-5.1) Chloride Level 106mmol/L (98-107) Carbon Dioxide Level 25mmol/L (21-32) Anion Gap 12 (6-14) Blood Urea Nitrogen 8mg/dL (7-20) Creatinine 0.8mg/dL (0.6-1.0) Estimated GFR (Cockcroft-Gault) 81.2 Glucose Level 106mg/dL (70-99) H Calcium Level 8.8mg/dL (8.5-10.1) Total Bilirubin 0.3mg/dL (0.2-1.0) Direct Bilirubin 0.1mg/dL (0.0-0.2) Aspartate Amino Transferase (AST) 18U/L (15-37) Alanine Aminotransferase (ALT) 27U/L (14-59) Alkaline Phosphatase 52U/L (46-116) Troponin I Quantitative < 0.017ng/mL (0.000-0.055) Total Protein 7.4g/dL (6.4-8.2) Albumin 4.1g/dL (3.4-5.0) Serum Test, Qualitative Negative (NEG) Laboratory Tests 07/10/16 20:55 Laboratory Tests 07/10/16 20:55 EKG EKG [] Radiology/Procedures Radiology/Procedures [] Course & Med Decision Making Course & Med Decision Making Pertinent Labs and Imaging studies reviewed. (See chart for details) [] Dragon Disclaimer Dragon Disclaimer This electronic medical record was generated, in whole or in part, using a voice recognition dictation system. Departure Departure Impression: Primary Impression: Nonspecific chest pain Disposition: HOME, SELF-CARE Condition: IMPROVED Referrals: ALAN BARRETT MD (PCP) Patient Instructions: Chest Pain (Nonspecific) Additional Instructions: follow up with your doctor in 2 days for reevaluation of your chest pain. ROEL SPIVEY MD Jul 10, 2016 22:17
--- NOTE | 2016-07-11 06:47 | EKG ---
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
--- NOTE | 2016-07-11 08:55 | RAD ---
Portable chest, 07/10/2016: History: Chest pain The heart size and pulmonary vascularity are normal. No pulmonary infiltrates are seen. There is no evidence of pleural fluid. IMPRESSION: No acute cardiopulmonary abnormality is detected.
== END 2016-07-10 22:22 | disposition home or self-care (01) ==
LOC: ER 20:35
DX: R07.9 Chest pain, unspecified (principal); K21.9 Gastro-esophageal reflux disease without esophagitis; Z88.0 Allergy status to penicillin; Z88.1 Allergy status to other antibiotic agents; Z88.5 Allergy status to narcotic agent
CPT/HCPCS: 36415; 71010; 80048; 80076; 81025; 84484; 84703; 85027; 85379; 93005; 99285-25

== ENCOUNTER 2021-01-19 12:38 | Emergency (ER) | payer OTHER ==
[~2021-01-19] VITALS: Ht 167.6 cm; Wt 88.5 kg
[~2021-01-19 12:38] MED LIST changes: -LEVO500T38 PO; +LEVO500T59 PO
--- NOTE | 2021-01-19 12:57 | PHYS DOC ---
Past Medical History Past Medical History: GERD, Kidney Stone Past Surgical History: Cholecystectomy, Tonsillectomy, Other Additional Past Surgical Histo: BX EAR, "part" of tonsils Smoking Status: Never Smoker Alcohol Use: Rarely Drug Use: None General Adult EDM: Chief Complaint: CHEST PAIN HPI: HPI: Patient is a 40 year old female who presents with a few weeks of of left shoulder pain, which she had attributed to musculoskeletal pain. She was seen by her PCP and had a reported steroid injection into her left shoulder joint. This did not improve her pain. She reports for the past 2-1/2 days she has had left- sided pectoral pain wrapping around to her left scapula, and underneath her left axilla. She denies any trauma or injury. She denies dyspnea, pleuritic pain, cough, fever, hemoptysis, dizziness, diaphoresis, leg pain or swelling. She denies exertional pain or exertional dyspnea. She contacted her primary care jose campo's office order to follow-up for persistent and changed pain, and when she mentioned chest pain they told her to come to the ER to rule out any cardiac issues. Review of Systems: Review of Systems: Constitutional: Denies fever or chills. [] Eyes: Denies change in visual acuity. [] HENT: Denies nasal congestion or sore throat. [] Respiratory: Denies cough or shortness of breath. [] Cardiovascular: Left chest and axillary and left shoulder pain. No edema. GI: Denies abdominal pain, nausea, vomiting, bloody stools or diarrhea. [] : Denies dysuria. [] Musculoskeletal: Reports left shoulder and axillary pain, reports left scapular pain. Integument: Denies rash. [] Neurologic: Denies headache, focal weakness or sensory changes. [] Endocrine: Denies polyuria or polydipsia. [] Lymphatic: Denies swollen glands. [] Psychiatric: Denies depression or anxiety. [] Heart Score: C/O Chest Pain: Yes HEART Score for Chest Pain: HEART Score for Chest Pain Response (Comments) Value History Slighlty/Non-Suspicious 0 ECG Normal 0 Age < 45 0 Risk Factors 1 or 2 Risk Factors 1 Troponin < Normal Limit 0 Total 1 Risk Factors: Risk Factors: DM, Current or recent (<one month) smoker, HTN, HLP, family history of CAD, obesity. Risk Scores: Score 0 - 3: 2.5% MACE over next 6 weeks - Discharge Home Score 4 - 6: 20.3% MACE over next 6 weeks - Admit for Clinical Observation Score 7 - 10: 72.7% MACE over next 6 weeks - Early Invasive Strategies Allergies: Allergies: Allergies Coded Allergies Type Severity Reaction Last Updated Verified Cephalosporins Allergy Intermediate 07/10/16 No Penicillins Allergy Intermediate Hives 07/10/16 Yes hydrocodone Allergy Intermediate Hives 07/10/16 Yes sulfamethoxazole Allergy Intermediate 07/10/16 No trimethoprim Allergy Intermediate 07/10/16 No vancomycin Allergy Intermediate "Artem Syndrome." 07/10/16 Yes hydromorphone Adverse Reaction Intermediate Whole body shaking-"Said it was an adverse reaction." 07/10/16 Yes Physical Exam: PE: Constitutional: Well developed, well nourished, no acute distress, non-toxic appearance. [] HENT: Normocephalic, atraumatic, bilateral external ears normal, oropharynx moist, no oral exudates, nose normal. [] Eyes: PERRLA, EOMI, conjunctiva normal, no discharge. [] Neck: Normal range of motion, no tenderness, supple, no stridor. [] Cardiovascular:Heart rate regular rhythm, no murmur , +2 radial and posterior tibial pulses bilaterally. Lungs & Thorax: Bilateral breath sounds clear to auscultation, equal chest rise, no rales, rhonchi or wheezes. No chest wall deformity. Abdomen: Bowel sounds normal, soft, no tenderness, no masses, no pulsatile masses. [] Skin: Warm, dry, no erythema, no rash. [] Back: No tenderness, no CVA tenderness. [] Extremities: No tenderness, no cyanosis, no clubbing, ROM intact, no edema. No calf tenderness. Neurologic: Alert and oriented X 3, normal motor function, normal sensory function, no focal deficits noted. [] Psychologic: Affect normal, judgement normal, mood normal. [] EKG: EKG: EKG is interpreted at 1300 Rhythm is sinus Rate is 81 bpm [place] is normal No STEMI Radiology/Procedures: Radiology/Procedures: IMAGING REPORT Signed PATIENT: BRIAN GRIFFITHS ACCOUNT: [id number] : 1980 LOCATION: ER AGE: 40 SEX: F EXAM STATUS: REG ER ORD. PHYSICIAN: MICKY YARBROUGH DO REASON: chest pain PROCEDURE: PORTABLE CHEST 1V XR CHEST 1V CLINICAL INDICATIONS: Reason: chest pain / Spl. Instructions: / History: COMPARISON: July 10, 2016. Findings: No acute lung infiltrate or pleural effusion or pulmonary edema or lung mass or pneumothorax is seen. The heart size, pulmonary vasculature, mediastinum and both duane are unremarkable. IMPRESSION: No acute radiographic abnormality is seen. Electronically signed by: Elisabeth Rao MD (01/19/2021 1:43 PM) [id number] DICTATED and SIGNED BY: ELISABETH RAO MD DATE: 01/19/21 [id number] 0 Course & Med Decision Making: Course & Med Decision Making Pertinent Labs and Imaging studies reviewed. (See chart for details) The patient is given Toradol and p.o. Flexeril here. I discussed the findings, differential diagnosis and plan of care with her. Her emergency department work- up is unremarkable for any acute life-threatening process. Heart score is 1. EKG is nonischemic. Troponin is negative. Imaging is unremarkable. There may still be an underlying musculoskeletal etiology for her symptoms. I recommend she contact her primary care physician for further follow-up, and I explained that she may require further outpatient imaging, such as MRI. If symptoms persist and are not found to have an underlying source based on outpatient studies, she may require outpatient cardiology referral. She is comfortable with the plan for discharge home. Return precautions are given. Arti Disclaimer: Arti Disclaimer: This electronic medical record was generated, in whole or in part, using a voice recognition dictation system. Departure Departure Impression: Primary Impression: Left shoulder pain Additional Impression: Atypical chest pain Disposition: 01 HOME / SELF CARE / HOMELESS Condition: GOOD Referrals: ALAN BARRETT MD (PCP) Patient Instructions: Chest Pain (Nonspecific), Shoulder Pain Additional Instructions: Use the medication as needed/as directed. You may ice and elevate your shoulder at rest. Please contact your primary care physician for further follow-up. You may require further outpatient imaging, such as MRI, or as directed by your primary physician. Return for any acute trauma or injury, more severe pain, uncontrolled vomiting, dehydration, focal motor weakness, severe joint redness or swelling, fever 100.4 or higher, severe shortness of breath, coughing up blood or any other concerns. Scripts Cyclobenzaprine Hcl (CYCLOBENZAPRINE HCL) 10 Mg Tablet 1 TAB PO BID for muscle spasm, #14 TAB Prov: MICKY YARBROUGH DO 01/19/21 Oxycodone/Apap 5-325 (PERCOCET 5-325 MG TABLET ) 1 Each Tablet 1-2 EACH PO Q6HRS PRN for PAIN, #10 TAB pain Prov: MICKY YARBROUGH DO 01/19/21 MICKY YARBROUGH DO Jan 19, 2021 12:57
[2021-01-19] MEDS ORDERED: KETOROLAC 15 MG/ML VIAL. IVP ONE (13:15)
--- NOTE | 2021-01-19 13:45 | RAD ---
XR CHEST 1V CLINICAL INDICATIONS: Reason: chest pain / Spl. Instructions: / History: COMPARISON: July 10, 2016. Findings: No acute lung infiltrate or pleural effusion or pulmonary edema or lung mass or pneumothora x is seen. The heart size, pulmonary vasculature, mediastinum and both [place] are unremarkable. IMPRESSION: No acute radiographic abnormality is seen. Electronically signed by: Vidal Rao MD (01/19/2021 1:43 PM) [id number]
[2021-01-19 14:06] LABS: BASO % 0 % (0-3); EOS % 0 % (0-3); HEMATOCRIT 42.6 % (36.0-47.0); HEMOGLOBIN 14.5 g/dL (12.0-15.5); LYMPH # 2.3 x10^3/uL (1.0-4.8); LYMPH % 19 % (24-48); MEAN CORPUSCULAR HEMOGLOBIN 31 pg (25-35); MEAN CORPUSCULAR HGB CONC 34 g/dL (31-37); MEAN CORPUSCULAR VOLUME 91 fL (79-100); MONO # 0.6 x10^3/uL (0.0-1.1); MONO % 5 % (0-9); NEUT # 8.9 x10^3/uL (1.8-7.7); NEUT % 76 % (31-73); PLATELET COUNT 288 x10^3/uL (140-400); RED BLOOD COUNT 4.66 x10^6/uL (3.50-5.40); RED CELL DISTRIBUTION WIDTH 13.3 % (11.5-14.5); WHITE BLOOD COUNT 11.8 x10^3/uL (4.0-11.0)
[2021-01-19 14:21] LABS: CALCIUM 8.8 mg/dL (8.5-10.1); CREATININE 0.7 mg/dL (0.6-1.0); GFR 92.7; MAGNESIUM 2.1 mg/dL (1.8-2.4); POTASSIUM 3.9 mmol/L (3.5-5.1); PREG TEST PT QUAL NEGATIVE (NEG)
[2021-01-19 14:46] VITALS: BP 142/99
[2021-01-19] MEDS ORDERED: OXYC1TAB15 PO (14:53)
[2021-01-19] MEDS ORDERED: CYCL10TA2 PO (14:53)
[2021-01-19] MEDS ORDERED: CYCLOBENZAPRINE 10 MG TABLET. PO ONE (15:00)
== END 2021-01-19 15:13 | disposition home or self-care (01) ==
LOC: ER 12:38
DX: M25.512 Pain in left shoulder (principal); R07.89 Other chest pain; K21.9 Gastro-esophageal reflux disease without esophagitis; Z87.442 Personal history of urinary calculi; Z88.1 Allergy status to other antibiotic agents; Z88.0 Allergy status to penicillin; Z88.5 Allergy status to narcotic agent; Z88.2 Allergy status to sulfonamides
CPT/HCPCS: 36415; 71045; 80048; 83735; 84484; 84703; 85025; 85379; 93005; 96374; 99285; J1885

== ENCOUNTER → 2021-03-01 | Outpatient (CLI) | payer OTHER ==
[~2021-03-01] MED LIST changes: +CYCL10TA19 PO; +GADOTERATE 5 MMOL/10ML VIAL. INT ART ONE; +IOHEXOL 300 MG/ML 50 ML VIAL. INT ART ONE; +LIDOCAINE 1% Multi-Dose 20 ML VIAL. ID ONE; +OXYC1TAB15 PO
--- NOTE | 2021-03-01 15:12 | KCIC ---
Examination: Left Shoulder Arthrogram: Indications: Left shoulder pain. Procedure: Risks, benefits and complications including bleeding, infection, blood vessel damage or j oint infection were discussed with the patient. Questions were answered and consent form signed. The patient was placed supine on the fluoroscopy table with the shoulder slightly externally rotated. Bony landmarks were used to plan for fluoroscopic injection. The patient was carefully prepped and draped in a sterile fashion. Using fluoroscopic guidance, local anesthetic and a 22 gauge needle th e joint space was entered. Intra-articular location was confirmed as approximately 12cc of a mixture of 5 mL Omnipaque 300, 5 mL lidocaine, 10 minimal saline and 0.1 mL clariscan was injected to distend the shoulder joint. The procedure was well tolerated and the patient was sent to MRI. Total fluoroscopic time 13 seconds. Total fluoroscopic images 1. Impression: Status post fluoroscopic guided arthrogram in preparation for MRI with contrast. Electronically signed by: Pipo Burns MD (03/01/2021 3:10 PM) [id number]
--- NOTE | 2021-03-01 16:09 | KCIC ---
Examination: MRI arthrogram left shoulder HISTORY: History of left shoulder pain, SLAP tear COMPARISON: None available TECHNIQUE: Multiplanar, multisequence MR imaging of the left shoulder performed after arthrogram inje ction FINDINGS: The long head of the biceps tendon within the bicipital groove. The attachment of the long head the b iceps tendon to the superior labral anchor grossly appears intact. The attachment of the subscapulari s tendon, supraspinatus, infraspinatus grossly appears intact. The muscle bulk grossly appears unrema rkable. There is increased signal identified in the superior labrum extending anteriorly and posteriorly and involving the bicipital tendon attachment likely SLAP tear. The acromion is type II. Mild degenerative changes acromioclavicular joint, glenohumeral joint. IMPRESSION: 1. Increased T2 signal identified in the superior labrum extending anteriorly and posteriorly and in volving the bicipital tendon attachment likely large SLAP tear. 2. Mild degenerative changes acromioclavicular joint, glenohumeral joint. Electronically signed by: Pipo Burns MD (03/01/2021 4:06 PM) [id number]
== END | disposition home or self-care (01) ==
LOC: KCIC 12:51
PROVIDERS: ATTEND Physician Assistant
DX: S43.432A Superior glenoid labrum lesion of left shoulder, initial encounter (principal); M25.512 Pain in left shoulder; M19.012 Primary osteoarthritis, left shoulder; Z88.0 Allergy status to penicillin; Z88.1 Allergy status to other antibiotic agents; Z79.899 Other long term (current) drug therapy; Z98.890 Other specified postprocedural states; X58.XXXA Exposure to other specified factors, initial encounter; Y93.89 Activity, other specified; Y92.89 Other specified places as the place of occurrence of the external cause; Y99.8 Other external cause status
CPT/HCPCS: 23350; 73222; 77002; A9575; J3490; Q9967

== ENCOUNTER 2021-06-18 10:54 | Inpatient (IN) | payer OTHER ==
[~2021-06-18] VITALS: Ht 167.6 cm; Wt 90.8 kg
[~2021-06-18 10:54] MED LIST changes: -GADOTERATE 5 MMOL/10ML VIAL. INT ART ONE; -IOHEXOL 300 MG/ML 50 ML VIAL. INT ART ONE; -LIDOCAINE 1% Multi-Dose 20 ML VIAL. ID ONE
[2021-06-18] MEDS ORDERED: diazePAM 5 MG TABLET PO ONE (11:15)
[2021-06-18 11:17] LABS: BASO # 0.1 x10^3/uL (0.0-0.2); BASO % 1 % (0-3); EOS % 0 % (0-3); HEMOGLOBIN 15.5 g/dL (12.0-15.5); LYMPH % 30 % (24-48); MEAN CORPUSCULAR HEMOGLOBIN 32 pg (25-35); MEAN CORPUSCULAR HGB CONC 35 g/dL (31-37); MEAN CORPUSCULAR VOLUME 89 fL (79-100); MONO # 0.6 x10^3/uL (0.0-1.1); MONO % 6 % (0-9); NEUT # 6.3 x10^3/uL (1.8-7.7); NEUT % 63 % (31-73); PLATELET COUNT 338 x10^3/uL (140-400); RED BLOOD COUNT 4.92 x10^6/uL (3.50-5.40); RED CELL DISTRIBUTION WIDTH 13.7 % (11.5-14.5)
--- NOTE | 2021-06-18 11:25 | RAD ---
Exam performed: One view chest. Indication: Reason: cp / Spl. Instructions: / History: Date of Service: 06/18/2021 11:10 AM Comparison: None available. Single AP upright portable view chest findings: Cardiomediastinal silhouette is within limits of normal. No acute infiltrates, effusion or pneumotho rax is detected. The bony structures are normal. Impression: No acute cardiopulmonary process is detected. Electronically signed by: Ivanna Carbajal MD (06/18/2021 11:22 AM) [facility]ALTH[facility]reen
[2021-06-18 11:34] LABS: CALCIUM 9.2 mg/dL (8.5-10.1); CREATININE 0.9 mg/dL (0.6-1.0); POTASSIUM 3.3 mmol/L (3.5-5.1)
[2021-06-18 11:38] LABS: ALBUMIN 4.6 g/dL (3.4-5.0); ALBUMIN/GLOBULIN RATIO 1.1 (1.0-1.7); MAGNESIUM 2.2 mg/dL (1.8-2.4); TOTAL BILIRUBIN 0.7 mg/dL (0.2-1.0); TOTAL PROTEIN 8.7 g/dL (6.4-8.2)
[2021-06-18 11:43] LABS: BARBITURATES NEG (NEG); BENZODIAZEPINES NEG (NEG); CANNABINOIDS NEG (NEG); COCAINE NEG (NEG); METHADONE NEG (NEG); OPIATES NEG (NEG); PHENCYCLIDINE NEG (NEG)
[2021-06-18] MEDS ORDERED: IV NORMAL SALINE 1000ML BAG 1,000 ML IV ONE (11:45)
[2021-06-18 11:46] LABS: AMPHETAMINE/METHAMPHETAMINE NEG (NEG)
[2021-06-18] MEDS ORDERED: KETOROLAC 15 MG/ML VIAL. IVP ONE (12:15)
--- NOTE | 2021-06-18 12:18 | PHYS DOC ---
Past Medical History Past Medical History: GERD, Kidney Stone Past Surgical History: Cholecystectomy, Other Additional Past Surgical Histo: EAR Smoking Status: Never Smoker Alcohol Use: None Drug Use: None General Adult EDM: Chief Complaint: ANXIETY/PANIC ATTACK HPI: HPI: 41-year-old female with no significant past medical history, presents to the ED with her , (patient consents to his/her/their knowledge and involvement in pts' medical care), c/o "my chest is being squeezed since 2 PM yesterday," with associated paranoia, panicking and excessive worrying. States she is only slept for a few hours last night and woke up at 5 AM to talk to her about how she thinks her things are being stolen. Was prescribed Flexeril and ibuprofen for left shoulder strain and thought she took a tablet of Flexeril last night. looked at her medications and found that patient took prednisone -patient has a history of anxiety and jitteriness while taking predni sone 2 weeks ago. States she just got back from [place], was visiting a friend. Denies any alcohol, tobacco or drug use including methamphetamine or cocaine. No LMP in the past 10 years, has a Nexplanon. 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 No soda or caffeine use in the past 2 months-has been losing weight due to dieting. Past surgical history of cholecystectomy. No h/o anxiety/depression/panic attacks. Does not believe she's very stressed. Review of Systems: Review of Systems: Constitutional: Denies fever or chills. [] Eyes: Denies change in visual acuity. [] HENT: Denies nasal congestion or sore throat. [] Respiratory: Denies cough or shortness of breath. [] Cardiovascular: Denies hemoptysis or edema. [] GI: Denies abdominal pain, nausea, vomiting, bloody stools or diarrhea. [] : Denies dysuria or vaginal bleeding Musculoskeletal: Denies back pain or joint pain. [] Integument: Denies rash or diaphoresis Neurologic: Denies headache, focal weakness or sensory changes. [] Endocrine: Denies polyuria or polydipsia. [] Lymphatic: Denies swollen glands. [] Psychiatric: Denies depression or anxiety. [] Heart Score: C/O Chest Pain: Yes HEART Score for Chest Pain: HEART Score for Chest Pain Response (Comments) Value History Slighlty/Non-Suspicious 0 ECG Normal 0 Age < 45 0 Risk Factors 1 or 2 Risk Factors 1 Troponin < Normal Limit 0 Total 1 Risk Factors: Risk Factors: DM, Current or recent (<one month) smoker, HTN, HLP, family history of CAD, obesity. Risk Scores: Score 0 - 3: 2.5% MACE over next 6 weeks - Discharge Home Score 4 - 6: 20.3% MACE over next 6 weeks - Admit for Clinical Observation Score 7 - 10: 72.7% MACE over next 6 weeks - Early Invasive Strategies Current Medications: Current Medications Medications (Trade) Dose Ordered Sig/Fernando Start Time Stop Time Status Last Admin Dose Admin Diazepam (Valium) 5 mg 1X ONCE 06/18/21 11:15 06/18/21 11:16 DC 06/18/21 11:33 5 MG Ketorolac Tromethamine (Toradol 15mg Vial) 15 mg 1X ONCE 06/18/21 12:15 06/18/21 12:16 Sodium Chloride 1,000 ml @ 1,000 mls/hr 1X ONCE 06/18/21 11:45 06/18/21 12:44 06/18/21 11:50 1,000 MLS/HR Allergies: Allergies: Allergies Coded Allergies Type Severity Reaction Last Updated Verified Cephalosporins Allergy Intermediate 07/10/16 No Penicillins Allergy Intermediate Hives 07/10/16 Yes hydrocodone Allergy Intermediate Hives 07/10/16 Yes sulfamethoxazole Allergy Intermediate 07/10/16 No trimethoprim Allergy Intermediate 07/10/16 No vancomycin Allergy Intermediate "Artem Syndrome." 07/10/16 Yes prednisone Allergy Unknown anxiety 06/18/21 Yes hydromorphone Adverse Reaction Intermediate Whole body shaking-"Said it was an adverse reaction." 07/10/16 Yes Physical Exam: PE: Constitutional: Well developed, well nourished, no acute distress, non-toxic appearance. HENT: Normocephalic, atraumatic, Eyes: EOMI, conjunctiva normal, no discharge. Neck: Normal range of motion, supple, Cardiovascular: S1/2 present, tachycardic Lungs & Thorax: Speaking in full sentences, bilateral equal chest rise, no tachypnea or increased work of breathing Abdomen: soft, no tenderness, Skin: Warm, dry, no erythema, no rash. [] Back: No tenderness, no CVA tenderness. [] Extremities: No tenderness, no cyanosis, no lower extremity edema Neurologic: Alert and oriented X 3, normal motor function, normal sensory function, no focal deficits noted. [] Psychologic: labile mood, very anxious and easily tearful -keeps apologizing Current Patient Data: Labs: Laboratory Tests Test 06/18/21 11:03 06/18/21 11:23 06/18/21 11:30 White Blood Count 10.0 x10^3/uL (4.0-11.0) Red Blood Count 4.92 x10^6/uL (3.50-5.40) Hemoglobin 15.5 g/dL (12.0-15.5) Hematocrit 44.0 % (36.0-47.0) Mean Corpuscular Volume 89 fL (79-100) Mean Corpuscular Hemoglobin 32 pg (25-35) Mean Corpuscular Hemoglobin Concent 35 g/dL (31-37) Red Cell Distribution Width 13.7 % (11.5-14.5) Platelet Count 338 x10^3/uL (140-400) Neutrophils (%) (Auto) 63 % (31-73) Lymphocytes (%) (Auto) 30 % (24-48) Monocytes (%) (Auto) 6 % (0-9) Eosinophils (%) (Auto) 0 % (0-3) Basophils (%) (Auto) 1 % (0-3) Neutrophils # (Auto) 6.3 x10^3/uL (1.8-7.7) Lymphocytes # (Auto) 3.0 x10^3/uL (1.0-4.8) Monocytes # (Auto) 0.6 x10^3/uL (0.0-1.1) Eosinophils # (Auto) 0.0 x10^3/uL (0.0-0.7) Basophils # (Auto) 0.1 x10^3/uL (0.0-0.2) Sodium Level 142 mmol/L (136-145) Potassium Level 3.3 mmol/L (3.5-5.1) L Chloride Level 106 mmol/L (98-107) Carbon Dioxide Level 23 mmol/L (21-32) Anion Gap 13 (6-14) Blood Urea Nitrogen 5 mg/dL (7-20) L Creatinine 0.9 mg/dL (0.6-1.0) Estimated GFR (Cockcroft-Gault) 69.0 BUN/Creatinine Ratio 6 (6-20) Glucose Level 106 mg/dL (70-99) H Calcium Level 9.2 mg/dL (8.5-10.1) Magnesium Level 2.2 mg/dL (1.8-2.4) Total Bilirubin 0.7 mg/dL (0.2-1.0) Aspartate Amino Transferase (AST) 19 U/L (15-37) Alanine Aminotransferase (ALT) 34 U/L (14-59) Alkaline Phosphatase 62 U/L (46-116) Troponin I High Sensitivity 11 ng/L (4-50) JW-Dat-E-Type Natriuretic Peptide 87 pg/mL (0-124) Total Protein 8.7 g/dL (6.4-8.2) H Albumin 4.6 g/dL (3.4-5.0) Albumin/Globulin Ratio 1.1 (1.0-1.7) Urine Opiates Screen Neg (NEG) Urine Methadone Screen Neg (NEG) Urine Barbiturates Neg (NEG) Urine Phencyclidine Screen Neg (NEG) Urine Amphetamine/Methamphetamine Neg (NEG) Urine Benzodiazepines Screen Neg (NEG) Urine Cocaine Screen Neg (NEG) Urine Cannabinoids Screen Neg (NEG) Urine Ethyl Alcohol Neg (NEG) POC Urine HCG, Qualitative Hcg negative (Negative) Laboratory Tests 06/18/21 11:03 Laboratory Tests 06/18/21 11:03 Vital Signs: Vital Signs Date Time Temp Pulse Resp B/P (MAP) Pulse Ox O2 Delivery O2 Flow Rate FiO2 06/18/21 10:57 98.9 156 26 173/104 (127) 99 Room Air 98.9 EKG: EKG: Sinus tachycardia 142 bpm, no axis deviation, normal intervals, no T wave inversion, no ST elevation or ST depression Radiology/Procedures: Radiology/Procedures: IMAGING REPORT Signed PATIENT: BRIAN GRIFFITHS ACCOUNT: [id number] : 1980 LOCATION: ER AGE: 41 SEX: F EXAM STATUS: PRE ER ORD. PHYSICIAN: ALICIA REES DO REASON: cp PROCEDURE: PORTABLE CHEST 1V Exam performed: One view chest. Indication: Reason: cp / Spl. Instructions: / History: Date of Service: 06/18/2021 11:10 AM Comparison: None available. Single AP upright portable view chest findings: Cardiomediastinal silhouette is within limits of normal. No acute infiltrates, effusion or pneumothorax is detected. The bony structures are normal. Impression: No acute cardiopulmonary process is detected. Electronically signed by: Ivanna Carbajal MD (06/18/2021 11:22 AM) [facility] DICTATED and SIGNED BY: IVANNA CARBAJAL MD DATE: 06/18/21 1121 IMAGING REPORT Signed PATIENT: BRIAN GRIFFITHS ACCOUNT: [id number] : 1980 LOCATION: ER AGE: 41 SEX: F EXAM STATUS: REG ER ORD. PHYSICIAN: ALICIA REES DO REASON: CHEST PAIN. R/O PE PROCEDURE: CT ANGIOGRAPHY CHEST EXAMINATION: CTA Chest With IV contrast INDICATION:41 years, Female, chest pain, evaluate for pulmonary embolism. COMPARISON: None. TECHNIQUE: Spiral CTA was obtained from the jugular notch through the posterior costophrenic recess. 3-D MIPS, sagittal and coronal reformats were obtained. Exposure: One or more of the following individualized dose reduction techniques were utilized for this examination: 1. Automated exposure control 2. Adjustment of the mA and/or kV according to patient size 3. Use of iterative reconstruction technique. FINDINGS: LUNGS/PLEURA: Central airways are patent. Dependent bibasilar subsegmental atelectasis. No focal consolidation, pleural effusion or pneumothorax. Multiple sub-5 mm solid pulmonary nodules in both lungs, for example pleural-based nodule in the right lower lobe (series 4 image 67) measures 4 mm. MEDIASTINUM: No pathologic mediastinal or hilar adenopathy. The thoracic aorta and pulmonary arteries are normal in caliber. No evidence of pulmonary embolism. The heart is normal in size. No pericardial effusion. No detectable calcified coronary atherosclerosis. The visualized thyroid and the esophagus are unremarkable. AXILLA/SOFT TISSUE: No supraclavicular or axillary adenopathy. Regional soft tissues are within normal limits. UPPER ABDOMEN: The visualized upper abdomen appears unremarkable. BONES: No evidence of acute fractures or aggressive osseous lesions. IMPRESSION: 1. No evidence of pulmonary embolism. 2. Multiple sub-5 mm solid pulmonary nodules in both lungs. Fleischner Society guidelines for management of incidental pulmonary nodule (Radiology 2017): Multiple solid nodules < 6 mm: LOW-RISK patient (minimal or absent history of smoking and other known risk factors): No routine follow-up HIGH-RISK patient (history of smoking or other known risk factors): Optional CT at 12 months. Electronically signed by: Margarette Swenson MD (06/18/2021 1:28 PM) [facility] DICTATED and SIGNED BY: MARGARETTE SWENSON MD DATE: 06/18/21 1851 Course & Med Decision Making: Course & Med Decision Making Pertinent Labs and Imaging studies reviewed. (See chart for details) Initial presentation was concerning for anxiety and panic attacks. Patient's tachycardia has not improved with IV fluids or benzos. CTA of the chest shows no evidence of pulmonary embolus. Patient reports history of dental implant 2 weeks ago and states "Could I have endocarditis?" Patient is not an IV drug user. Chest x-ray and urine showed no signs of infection. TSH pending. Will admit for further medical management. Patient stable at time of admission agrees with this plan. I have spoken with the patient and/or caregivers. I have explained the patient's condition, diagnosis and treatment plan based on the information available to me at this time. I have answered the patient's and/or caregivers questions and answered any concerns. The patient and/or caregivers have as good an understanding of the patient's diagnosis, condition and treatment plan as can be expected at this point. The patient has been stabilized within the capability of the emergency department. The patient will be transported for further care and management or will be moved to an observation or inpatient service. I have communicated with the staff or medical practitioner taking over this patient's care. Arti Disclaimer: Arti Disclaimer: This electronic medical record was generated, in whole or in part, using a voice recognition dictation system. Departure Departure Impression: Primary Impression: Sinus tachycardia Disposition: ADMITTED INPATIENT Admitting Physician: YOHAN (Dr. Francois) Condition: STABLE Referrals: ALAN BARRETT MD (PCP) ALICIA REES DO Jun 18, 2021 12:18
[2021-06-18] MEDS ORDERED: IOHEXOL 350 MG/ML 100 ML VIAL. IV ONE (12:30)
[2021-06-18] MEDS ORDERED: CONTRAST GIVEN. MC PRN (12:30)
[2021-06-18 12:31] LABS: BILIRUBIN,URINE NEGATIVE (NEG); CLARITY,URINE CLEAR; COLOR,URINE YELLOW; NITRITE,URINE NEGATIVE (NEG); PH,URINE 6.5 (<5.0-8.0); PROTEIN,URINE TRACE mg/dL (NEG-TRACE); UROBILINOGEN,URINE 0.2 mg/dL (0.2 mg/dL)
[2021-06-18 12:32] LABS: BACTERIA,URINE FEW /HPF (0-FEW); RBC,URINE OCC /HPF (0-2)
--- NOTE | 2021-06-18 13:30 | RAD ---
EXAMINATION: CTA Chest With IV contrast INDICATION:41 years, Female, chest pain, evaluate for pulmonary embolism. COMPARISON: None. TECHNIQUE: Spiral CTA was obtained from the jugular notch through the posterior costophrenic recess. 3-D MIPS, sagittal and coronal reformats were obtained. Exposure: One or more of the following individualized dose reduction techniques were utilized for thi s examination: 1. Automated exposure control 2. Adjustment of the mA and/or kV according to patient size 3. Use of iterative reconstruction technique. FINDINGS: LUNGS/PLEURA: Central airways are patent. Dependent bibasilar subsegmental atelectasis. No focal cons olidation, pleural effusion or pneumothorax. Multiple sub-5 mm solid pulmonary nodules in both lungs, for example pleural-based nodule in the right lower lobe (series 4 image 67) measures 4 mm. MEDIASTINUM: No pathologic mediastinal or hilar adenopathy. The thoracic aorta and pulmonary arteries are normal in caliber. No evidence of pulmonary embolism. The heart is normal in size. No pericardia l effusion. No detectable calcified coronary atherosclerosis. The visualized thyroid and the esophagu s are unremarkable. AXILLA/SOFT TISSUE: No supraclavicular or axillary adenopathy. Regional soft tissues are within larissa l limits. UPPER ABDOMEN: The visualized upper abdomen appears unremarkable. BONES: No evidence of acute fractures or aggressive osseous lesions. IMPRESSION: 1. No evidence of pulmonary embolism. 2. Multiple sub-5 mm solid pulmonary nodules in both lungs. Fleischner Society guidelines for management of incidental pulmonary nodule (Radiology 2017): Multipl e solid nodules < 6 mm: LOW-RISK patient (minimal or absent history of smoking and other known risk factors): No routine foll ow-up HIGH-RISK patient (history of smoking or other known risk factors): Optional CT at 12 months. Electronically signed by: Aman Swenson MD (06/18/2021 1:28 PM) [facility]
[2021-06-18 16:09] VITALS: BP 131/100
--- NOTE | 2021-06-18 18:39 | EKG ---
[facility] [address] [place] [address] Test Date: 2021-06-18 Test Time: 11:06:23 Pat Name: BRIAN GRIFFITHS Department: Room: Gender: F [employer] Server: : 1980 Requested By: ALICIA REES Order Number: [id number] Reading MD: Measurements Intervals [place] Rate: 142 P: 44 LA: 128 QRS: 28 QRSD: 86 T: 50 QT: 272 QTc: 425 Interpretive Statements SINUS TACHYCARDIA NO SPECIFIC ECG ABNORMALITIES RI6.02 No previous ECG available for comparison
[2021-06-18] MEDS ORDERED: METOPROLOL IV PUSH 5 MG/5 ML VIAL. IVP ONE (19:30)
[2021-06-18 19:40] VITALS: BP 153/84
--- NOTE | 2021-06-18 22:06 | HP ---
DATE OF SERVICE: 06/18/2021 ADMIT DATE: 06/18/2021 CHIEF COMPLAINT: Anxiety and panic attack, chest discomfort, palpitations. 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 She presented with her earlier today because of anxiety and panic attack. She has some associated chest pain. She feels like she has a squeezing sensation in her chest. She states this all started when she had 3 teeth dental implants put in a couple of years ago. She apparently woke up at 5 this morning with these symptoms to talk to her and also thought some things have been stolen again, she is a little confused. Her told the nurse that he is concerned she may have taken some hallucinogenic drug. She apparently took some prednisone and has a reaction to that in the past. She apparently just got back ____ visiting a friend. Denies taking any drugs. She has been under a lot of stress regarding the COVID pandemic, admit working a lot of hours. I discussed the case with ER physician. We are going to admit the patient. PAST MEDICAL HISTORY: Anxiety, GERD, kidney stones, cholecystectomy, ear surgery, UTI, muscle spasms, chronic pain (she is on Percocet). ALLERGIES: MULTIPLE INCLUDING CEPHALEXIN, PENICILLIN, HYDROCODONE, HYDROMORPHONE, PREDNISONE, SULFA, TRIMETHOPRIM AND VANCOMYCIN. FAMILY HISTORY: Noncontributory. 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 She is . States she does not drink, smoke or take drugs. MEDICATIONS: Reviewed. She is on Levaquin, cyclobenzaprine, Flexeril, apparently took some prednisone too. REVIEW OF SYSTEMS: GENERAL: She complains of weakness. SKIN: No bruising, hair changes or rashes. EYES: No blurred, double or loss of vision. NOSE AND THROAT: No history of nosebleeds, hoarseness or sore throat. MOUTH: She complains of partly numb tongue and jaw. HEART: She complains of chest pain. LUNGS: Denies cough, hemoptysis, wheezing or shortness of breath. GASTROINTESTINAL: Denies changes in appetite, nausea, vomiting, diarrhea or constipation. GENITOURINARY: No history of frequency, urgency, hesitancy or nocturia. NEUROLOGIC: She complains of shaking and weakness. PSYCHIATRIC: She complains of anxiety and depression. ENDOCRINE: No history of heat or cold intolerance, polyuria or polydipsia. EXTREMITIES: Denies muscle weakness, joint pain, pain on walking or stiffness. PHYSICAL EXAMINATION: VITALS: Within normal limits and are stable. GENERAL: She is quite anxious. HEENT: Normal cephalic atraumatic, external auditory canals are patent. EYES: Extraocular muscles are intact, pupils are equally round and reactive to light and accommodation. MUSCULOSKELETAL: Well developed, well nourished, good range of motion. ENDOCRINE: No thyromegaly was palpated. LYMPHATICS: No cervical chain or axillary nodes were noted. HEMATOPOIETIC: No bruising. NECK: Supple, no JVD, no thyromegaly was noted. LUNGS: Clear to auscultation in all lung hunter without rhonchi or wheezing. HEART: She is tachycardic with a distant S1, S2. ABDOMEN: Soft, nontender. Positive bowel sounds no organomegaly, normal bowel sounds. EXTREMITIES: Without any cyanosis, clubbing, or edema. Pedal pulses intact, Homans sign is negative. NEUROLOGIC: She is very anxious and somewhat weak. PSYCHIATRIC: She appears to be possibly in a manic phase very anxious, agitated at times. SKIN: No ulcerations or rashes, good skin turgor, no jaundice. VASCULAR: Good capillary refill, neurovascular bundle appears to be intact. LABORATORY DATA: White count 10, hemoglobin 15.5, platelets 333. Electrolytes are normal other than potassium of 3.3. Her BUN is a little low at 5. Glucose is high at 106. Urinalysis negative. Drug screen negative. CT angiography of the chest showed no pulmonary emboli. There are some small nodules, 5 mm in both lungs. Chest x-ray negative. EKG shows sinus tachycardia and she has been ranging between 156-126 beats per minute. ASSESSMENT AND PLAN: Tachycardia, mental status change, hypokalemia, possible anxiety attack. The patient will be admitted. We will consult Cardiology. Serial enzymes, serial EKGs, cardiac monitoring, home meds. DVT prophylaxis. Full code. Check TSH. IV fluids, continuous pulse oximetry and currently we have her on 2 liters. She got a dose of Valium in the ER. I also gave her one dose of IV metoprolol, which did seem to help. JOAO/KARINA DR: JOAO/abram SHEETS: 06/18/2021 21:37 TID: [id number]
[2021-06-18 23:05] VITALS: BP 156/95
[2021-06-19 03:15] VITALS: BP 145/103
[2021-06-19] MEDS ORDERED: METOPROLOL IV PUSH 5 MG/5 ML VIAL. IVP ONE (04:15)
[2021-06-19] MEDS ORDERED: MORPHINE SULFATE 2 MG/ML INJ. IVP PRN (04:15)
[2021-06-19 07:00] VITALS: BP 137/103
--- NOTE | 2021-06-19 09:00 | PDOC2 ---
NHI CHATTERJEE CLEANER ASSISTANT 06/19/21 0900: CARDIAC CONSULT DATE OF CONSULT Date of Consult DATE: 06/19/21 TIME: 08:55 REASON FOR CONSULT Reason for Consult: Tachycardia, chest pain REFERRING PHYSICIAN Referring Physician: Dr. Francois SOURCE Source: Chart review, Patient HISTORY OF PRESENT ILLNESS HISTORY OF PRESENT ILLNESS This is a 41 yo female who presented secondary to palpitations, altered mental status, anxiety, and paranoia. Patient reports significant increased life stressors recently. Has also not been sleeping much due to left shoulder pain for the last several months. Has been taking Flexeril and Ibuprofen for the pain. Reports waking up Saturday morning with shoulder pain. Thought she took a Flexeril, but accidentally too 5mg of Prednisone instead. He and her left to visit her friend in [place] who needed some help. On the trip down, reports patient began acting weird and was saying things that did not make sense. She also expressed that her heart was beating fast. They ended up coming home from [place]. On Saturday, patient continued to have altered mentation and palpitations. [place] like her heart was racing. was very concerned as this was not patients baseline mentation and she was functioning on very little sleep. reports h/o jitteriness and anxiety from prednisone. Patient is feeling much better this morning and HR has improved. PAST MEDICAL HISTORY Cardiovascular: No pertinent hx Pulmonary: No pertinent hx Renal/: No pertinent hx PAST SURGICAL HISTORY Past Surgical History: Cholecystectomy, Tonsillectomy, Other (multiple ear surgeries ) FAMILY HISTORY Family History: Diabetes SOCIAL HISTORY Smoke: No ALCOHOL: none Drugs: None Lives: with Family CURRENT MEDICATIONS CURRENT MEDICATIONS Current Medications Medications (Trade) Dose Ordered Sig/Fernando Route PRN Reason Start Time Stop Time Status Last Admin Dose Admin Diazepam (Valium) 5 mg 1X ONCE PO 06/18/21 11:15 06/18/21 11:16 DC 06/18/21 11:33 Sodium Chloride 1,000 ml @ 1,000 mls/hr 1X ONCE IV 06/18/21 11:45 06/18/21 12:44 DC 06/18/21 11:50 Ketorolac Tromethamine (Toradol 15mg Vial) 15 mg 1X ONCE IVP 06/18/21 12:15 06/18/21 12:16 DC 06/18/21 12:13 Lorazepam (Ativan Inj) 1 mg 1X ONCE IVP 06/18/21 12:30 06/18/21 12:31 DC 06/18/21 12:22 Iohexol (Omnipaque 350 Mg/ml) 100 ml 1X ONCE IV 06/18/21 12:30 06/18/21 12:31 DC 06/18/21 12:30 Metoprolol Tartrate (Lopressor Vial) 5 mg 1X ONCE IVP 06/18/21 19:30 06/18/21 19:41 DC 06/18/21 19:45 Metoprolol Tartrate (Lopressor Vial) 5 mg 1X ONCE IVP 06/19/21 04:15 06/19/21 04:16 DC 06/19/21 04:22 Morphine Sulfate (Morphine Sulfate) 2 mg PRN Q2HR PRN IVP PAIN 06/19/21 04:15 06/19/21 04:21 ALLERGIES ALLERGIES: Coded Allergies: Cephalosporins (Unverified Allergy, Intermediate, 07/10/16) Penicillins (Verified Allergy, Intermediate, Hives, 07/10/16) hydrocodone (Verified Allergy, Intermediate, Hives, 07/10/16) sulfamethoxazole (Unverified Allergy, Intermediate, 07/10/16) trimethoprim (Unverified Allergy, Intermediate, 07/10/16) vancomycin (Verified Allergy, Intermediate, "Artem Syndrome." , 07/10/16) prednisone (Verified Allergy, Unknown, anxiety, 06/18/21) hydromorphone (Verified Adverse Reaction, Intermediate, Whole body shaking-"Said it was an adverse reaction." , 07/10/16) ROS Review of System 14 point ROS conducted with pertinent positives noted above in HPI PHYSICAL EXAM General: Alert, Oriented X3, Cooperative, No acute distress HEENT: Atraumatic Lungs: Clear to auscultation Heart: Regular rate Abdomen: Soft, No tenderness Extremities: No edema, Normal pulses Skin: No significant lesion Neuro: Normal speech, Sensation intact Psych/Mental Status: Other MUSCULOSKELETAL: Osteoarthritic changes both hands VITALS/I&O VITALS/I&O: Vital Signs Date Time Temp Pulse Resp B/P (MAP) Pulse Ox O2 Delivery O2 Flow Rate FiO2 06/19/21 07:00 98.6 95 16 137/103 (114) 100 Room Air 98.6 06/19/21 04:55 2.0 I & O 06/18/21 06/18/21 06/19/21 15:00 23:00 07:00 Intake Total 1000 ml 180 ml 1400 ml Output Total 400 ml 600 ml Balance 1000 ml -220 ml 800 ml LABS Lab: Laboratory Tests Test 06/18/21 11:03 06/18/21 11:23 06/18/21 11:30 06/18/21 14:11 White Blood Count 10.0 x10^3/uL (4.0-11.0) Red Blood Count 4.92 x10^6/uL (3.50-5.40) Hemoglobin 15.5 g/dL (12.0-15.5) Hematocrit 44.0 % (36.0-47.0) Mean Corpuscular Volume 89 fL (79-100) Mean Corpuscular Hemoglobin 32 pg (25-35) Mean Corpuscular Hemoglobin Concent 35 g/dL (31-37) Red Cell Distribution Width 13.7 % (11.5-14.5) Platelet Count 338 x10^3/uL (140-400) Neutrophils (%) (Auto) 63 % (31-73) Lymphocytes (%) (Auto) 30 % (24-48) Monocytes (%) (Auto) 6 % (0-9) Eosinophils (%) (Auto) 0 % (0-3) Basophils (%) (Auto) 1 % (0-3) Neutrophils # (Auto) 6.3 x10^3/uL (1.8-7.7) Lymphocytes # (Auto) 3.0 x10^3/uL (1.0-4.8) Monocytes # (Auto) 0.6 x10^3/uL (0.0-1.1) Eosinophils # (Auto) 0.0 x10^3/uL (0.0-0.7) Basophils # (Auto) 0.1 x10^3/uL (0.0-0.2) Sodium Level 142 mmol/L (136-145) Potassium Level 3.3 mmol/L (3.5-5.1) L Chloride Level 106 mmol/L (98-107) Carbon Dioxide Level 23 mmol/L (21-32) Anion Gap 13 (6-14) Blood Urea Nitrogen 5 mg/dL (7-20) L Creatinine 0.9 mg/dL (0.6-1.0) Estimated GFR (Cockcroft-Gault) 69.0 BUN/Creatinine Ratio 6 (6-20) Glucose Level 106 mg/dL (70-99) H Calcium Level 9.2 mg/dL (8.5-10.1) Magnesium Level 2.2 mg/dL (1.8-2.4) Total Bilirubin 0.7 mg/dL (0.2-1.0) Aspartate Amino Transferase (AST) 19 U/L (15-37) Alanine Aminotransferase (ALT) 34 U/L (14-59) Alkaline Phosphatase 62 U/L (46-116) Troponin I High Sensitivity 11 ng/L (4-50) 12 ng/L (4-50) AS-Obo-B-Type Natriuretic Peptide 87 pg/mL (0-124) Total Protein 8.7 g/dL (6.4-8.2) H Albumin 4.6 g/dL (3.4-5.0) Albumin/Globulin Ratio 1.1 (1.0-1.7) Thyroid Stimulating Hormone (TSH) 3.729 uIU/mL (0.358-3.74) Urine Collection Type Unknown Urine Color Yellow Urine Clarity Clear Urine pH 6.5 (<5.0-8.0) Urine Specific [place] 1.015 (1.000-1.030) Urine Protein Trace mg/dL (NEG-TRACE) Urine Glucose (UA) Negative mg/dL (NEG) Urine Ketones (Stick) 80 mg/dL (NEG) Urine Blood Trace (NEG) Urine Nitrite Negative (NEG) Urine Bilirubin Negative (NEG) Urine Urobilinogen Dipstick 0.2 mg/dL (0.2 mg/dL) Urine Leukocyte Esterase Negative (NEG) Urine RBC Occ /HPF (0-2) Urine WBC 1-4 /HPF (0-4) Urine Squamous Epithelial Cells Mod /LPF Urine Bacteria Few /HPF (0-FEW) Urine Mucus Slight /LPF Urine Opiates Screen Neg (NEG) Urine Methadone Screen Neg (NEG) Urine Barbiturates Neg (NEG) Urine Phencyclidine Screen Neg (NEG) Urine Amphetamine/Methamphetamine Neg (NEG) Urine Benzodiazepines Screen Neg (NEG) Urine Cocaine Screen Neg (NEG) Urine Cannabinoids Screen Neg (NEG) Urine Ethyl Alcohol Neg (NEG) POC Urine HCG, Qualitative Hcg negative (Negative) Laboratory Tests 06/18/21 11:03 Laboratory Tests 06/18/21 11:03 ASSESSMENT/PLAN ASSESSMENT/PLAN 1. Chest pain, atypical. AMI ruled out 2. Anxiety, paranoia, psychosis; significant life stressors. ? prednisone contributing. resolved. 3. Sinus tachycardia ,palpitations; s/p IV metoprolol. most probably secondary to above. Resolved. TSH WNL 4. Hypertension; mildly elevated 5. Hypokalemia Recommendations Will arranged outpatient event monitor and echocardiogram Will need to obtain referral from PCP as patient has Follow up in our office with SAMMY Weaver MD 06/19/21 1820: CARDIAC CONSULT ASSESSMENT/PLAN ASSESSMENT/PLAN Patient seen and examined. Agree with above nurse practitioner note. 41-year-old woman presented with tachycardia of unclear etiology likely secondary to left shoulder pain, anxiety and significant life stressors. EKG is unremarkable. Cardiac examination is unremarkable. The patient does not have any significant risk factors and is quite active swimming up to 30 to 40 minutes at a time less than 6 months ago when she actually tore her left shoulder which caused most of her symptoms more recently Supportive care for now. She will follow-up in the office in 2 to 4 weeks and we will reassess any symptoms and consider further evaluation including echocardiogram and event recorder's as needed. NHI CHATTERJEE APRN Jun 19, 2021 09:00 SAMMY KENT MD Jun 19, 2021 18:20
[2021-06-19 10:33] VITALS: BP 146/100
--- NOTE | 2021-06-19 10:38 | PDOC ---
[employer] PROGRESS NOTE Date of Service DOS: DATE: 06/19/21 TIME: 10:36 Chief Complaint Chief Complaint Tachycardia Atypical chest pain Anxiety, GERD, kidney stones, cholecystectomy, ear surgery, UTI, muscle spasms, chronic pain History of Present Illness History of Present Illness 06/19/2021 Patient seen and examined Her is present and seems to be great support for her The patient is a little less anxious today Chart reviewed Discussed with case management Discussed with justice court judge consult in progress Vitals/I&O Vitals/I&O: Vital Signs Date Time Temp Pulse Resp B/P (MAP) Pulse Ox O2 Delivery O2 Flow Rate FiO2 06/19/21 08:00 Room Air 06/19/21 07:00 98.6 95 16 137/103 (114) 100 98.6 06/19/21 04:55 2.0 I & O 06/18/21 06/18/21 06/19/21 15:00 23:00 07:00 Intake Total 1000 ml 180 ml 1400 ml Output Total 400 ml 600 ml Balance 1000 ml -220 ml 800 ml Physical Exam General: Alert Heart: Regular rate, Other (Slightly tachycardic at 105 bpm) Lungs: Clear, Wheezing Abdomen: Normal bowel sounds Extremities: No clubbing Skin: No rashes Labs Labs: Laboratory Tests Test 06/18/21 11:03 06/18/21 11:23 06/18/21 11:30 06/18/21 14:11 White Blood Count 10.0 x10^3/uL (4.0-11.0) Red Blood Count 4.92 x10^6/uL (3.50-5.40) Hemoglobin 15.5 g/dL (12.0-15.5) Hematocrit 44.0 % (36.0-47.0) Mean Corpuscular Volume 89 fL (79-100) Mean Corpuscular Hemoglobin 32 pg (25-35) Mean Corpuscular Hemoglobin Concent 35 g/dL (31-37) Red Cell Distribution Width 13.7 % (11.5-14.5) Platelet Count 338 x10^3/uL (140-400) Neutrophils (%) (Auto) 63 % (31-73) Lymphocytes (%) (Auto) 30 % (24-48) Monocytes (%) (Auto) 6 % (0-9) Eosinophils (%) (Auto) 0 % (0-3) Basophils (%) (Auto) 1 % (0-3) Neutrophils # (Auto) 6.3 x10^3/uL (1.8-7.7) Lymphocytes # (Auto) 3.0 x10^3/uL (1.0-4.8) Monocytes # (Auto) 0.6 x10^3/uL (0.0-1.1) Eosinophils # (Auto) 0.0 x10^3/uL (0.0-0.7) Basophils # (Auto) 0.1 x10^3/uL (0.0-0.2) Sodium Level 142 mmol/L (136-145) Potassium Level 3.3 mmol/L (3.5-5.1) Chloride Level 106 mmol/L (98-107) Carbon Dioxide Level 23 mmol/L (21-32) Anion Gap 13 (6-14) Blood Urea Nitrogen 5 mg/dL (7-20) Creatinine 0.9 mg/dL (0.6-1.0) Estimated GFR (Cockcroft-Gault) 69.0 BUN/Creatinine Ratio 6 (6-20) Glucose Level 106 mg/dL (70-99) Calcium Level 9.2 mg/dL (8.5-10.1) Magnesium Level 2.2 mg/dL (1.8-2.4) Total Bilirubin 0.7 mg/dL (0.2-1.0) Aspartate Amino Transf (AST/SGOT) 19 U/L (15-37) Alanine Aminotransferase (ALT/SGPT) 34 U/L (14-59) Alkaline Phosphatase 62 U/L (46-116) Troponin I High Sensitivity 11 ng/L (4-50) 12 ng/L (4-50) GU-Pqs-I-Type Natriuretic Peptide 87 pg/mL (0-124) Total Protein 8.7 g/dL (6.4-8.2) Albumin 4.6 g/dL (3.4-5.0) Albumin/Globulin Ratio 1.1 (1.0-1.7) Thyroid Stimulating Hormone (TSH) 3.729 uIU/mL (0.358-3.74) Urine Collection Type Unknown Urine Color Yellow Urine Clarity Clear Urine pH 6.5 (<5.0-8.0) Urine Specific [place] 1.015 (1.000-1.030) Urine Protein Trace mg/dL (NEG-TRACE) Urine Glucose (UA) Negative mg/dL (NEG) Urine Ketones (Stick) 80 mg/dL (NEG) Urine Blood Trace (NEG) Urine Nitrite Negative (NEG) Urine Bilirubin Negative (NEG) Urine Urobilinogen Dipstick 0.2 mg/dL (0.2 mg/dL) Urine Leukocyte Esterase Negative (NEG) Urine RBC Occ /HPF (0-2) Urine WBC 1-4 /HPF (0-4) Urine Squamous Epithelial Cells Mod /LPF Urine Bacteria Few /HPF (0-FEW) Urine Mucus Slight /LPF Urine Opiates Screen Neg (NEG) Urine Methadone Screen Neg (NEG) Urine Barbiturates Neg (NEG) Urine Phencyclidine Screen Neg (NEG) Urine Amphetamine/Methamphetamine Neg (NEG) Urine Benzodiazepines Screen Neg (NEG) Urine Cocaine Screen Neg (NEG) Urine Cannabinoids Screen Neg (NEG) Urine Ethyl Alcohol Neg (NEG) Bedside Urine HCG, Qualitative Hcg negative (Negative) Assessment and Plan Assessmemt and Plan Problems Medical Problems: (1) Sinus tachycardia Status: Acute Tachycardia Atypical chest pain Anxiety, GERD, kidney stones, cholecystectomy, ear surgery, UTI, muscle spasms, chronic pain Plan Continue cardiac monitoring Await cardiology input Negative chronotropic agents per cardiology recommendations Home meds DVT prophylaxis Full code I suspect there is a psychosomatic component to this but the patient kindly denies this at first but then request to go ahead and be put back on her Zoloft that she used to be on (she apparently has a tremendous amount of 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 Medications: Current Medications Medications (Trade) Dose Ordered Sig/Fernando Route PRN Reason Start Time Stop Time Status Last Admin Dose Admin Diazepam (Valium) 5 mg 1X ONCE PO 06/18/21 11:15 06/18/21 11:16 DC 06/18/21 11:33 Sodium Chloride 1,000 ml @ 1,000 mls/hr 1X ONCE IV 06/18/21 11:45 06/18/21 12:44 DC 06/18/21 11:50 Ketorolac Tromethamine (Toradol 15mg Vial) 15 mg 1X ONCE IVP 06/18/21 12:15 06/18/21 12:16 DC 06/18/21 12:13 Lorazepam (Ativan Inj) 1 mg 1X ONCE IVP 06/18/21 12:30 06/18/21 12:31 DC 06/18/21 12:22 Iohexol (Omnipaque 350 Mg/ml) 100 ml 1X ONCE IV 06/18/21 12:30 06/18/21 12:31 DC 06/18/21 12:30 Metoprolol Tartrate (Lopressor Vial) 5 mg 1X ONCE IVP 06/18/21 19:30 06/18/21 19:41 DC 06/18/21 19:45 Metoprolol Tartrate (Lopressor Vial) 5 mg 1X ONCE IVP 06/19/21 04:15 06/19/21 04:16 DC 06/19/21 04:22 Morphine Sulfate (Morphine Sulfate) 2 mg PRN Q2HR PRN IVP PAIN 06/19/21 04:15 06/19/21 04:21 Justifications for Admission Other Justification JULIEN GARDNER III DO Jun 19, 2021 10:38
--- NOTE | 2021-06-19 10:44 | NUR ---
SS following for discharge planning. SS reviewed pt chart and discussed with pt RN. Pt is from home with spouse and is currently on room air. Cardiology consulted. ECHO ordered. Discharge plan is currently to home when medically ready for discharge. SS will continue to follow for discharge planning.
[2021-06-19] MEDS ORDERED: SERTRALINE 50 MG TABLET. PO SCH (11:30)
[2021-06-19] MEDS ORDERED: POTASSIUM CHLORIDE 20 MEQ TABLET.ER. PO ONE (15:30)
--- NOTE | 2021-06-19 16:37 | DS ---
DATE OF DISCHARGE: 06/19/2021 ADMITTING DIAGNOSES: Tachycardia and anxiety, chest pain. DISCHARGE DIAGNOSES: Resolving tachycardia, resolving anxiety, resolving atypical chest pain. 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 She has been under a lot of stress over the last year with COVID and she also has a boss named Junito at work that has given her a difficult time. She presented with tachycardia and chest discomfort. She appeared to have anxiety attack as well clinically. She currently denies that though, but then again, she did ask for a prescription for Zoloft. We watched overnight. We consulted Cardiology. Her heart rhythms are sinus tachycardia, although it is improved down to the low 100s. I spoke with Cardiology today, they did not put her on any negative chronotropic agents at this point. I did give her a prescription for Zoloft. We plan to discharge. DISPOSITION: Home. ACTIVITY: As tolerated. DIET: Low sodium. DISCHARGE MEDICATIONS: Please see the MRAD. TOTAL TIME: 34 minutes. JOAO/KARINA/[facility] [place]: JOAO/abram TID: [id number]
--- NOTE | 2021-06-20 07:18 | EKG ---
[facility] [address] [place] [address] Test Date: 2021-06-18 Test Time: 17:53:07 Pat Name: BRIAN GRIFFITHS Department: Room: Gender: F Life Scientist: : 1980 Requested By: ALICIA REES Order Number: [id number] Reading MD: Measurements Intervals [place] Rate: 139 P: MT: QRS: 18 QRSD: 80 T: 52 QT: 334 QTc: 514 Interpretive Statements IRREGULAR RHYTHM, NO P-WAVE FOUND R-S TRANSITION ZONE IN V LEADS DISPLACED TO THE LEFT NO SPECIFIC ECG ABNORMALITIES RI6.02 No previous ECG available for comparison
== END 2021-06-19 16:15 | disposition home or self-care (01) | DRG 309 ==
LOC: ER 10:54 → 6 SOUTH 14:23 → ER 16:00
PROVIDERS: ADMIT Internal Medicine; ATTEND Internal Medicine
DX: R00.0 Tachycardia, unspecified (principal); N39.0 Urinary tract infection, site not specified; E87.6 Hypokalemia; F41.0 Panic disorder [episodic paroxysmal anxiety]; G89.29 Other chronic pain; I10 Essential (primary) hypertension; K21.9 Gastro-esophageal reflux disease without esophagitis; R07.89 Other chest pain; N20.0 Calculus of kidney; Z83.3 Family history of diabetes mellitus; Z87.442 Personal history of urinary calculi; Z90.49 Acquired absence of other specified parts of digestive tract; R91.8 Other nonspecific abnormal finding of lung field; Z88.1 Allergy status to other antibiotic agents; Z88.5 Allergy status to narcotic agent; Z88.0 Allergy status to penicillin; Z88.8 Allergy status to other drugs, medicaments and biological substances; F41.9 Anxiety disorder, unspecified
CPT/HCPCS: 36415; 71045; 71275; 80053; 80307; 81001; 81025; 83735; 83880; 84443; 84484; 85025; 93005; J1885; J2060; J2270; J3490; J7030; Q9967; G0378